=== PATIENT | male | born 1985 | race Caucasian/White ===

== ENCOUNTER → 2025-06-09 13:11 | Outpatient (REF) | payer OTHER, SELFPAY | LOC: RAD 13:11 | PROVIDERS: ATTENDING PHYSICIAN Family Medicine | DX: M79.671 Pain in right foot (principal) | CPT/HCPCS: 73630 ==

== ENCOUNTER 2025-06-13 15:12 | Inpatient (IN) | payer OTHER, SELFPAY ==
[2025-06-13 10:32] VITALS: BP 135/95
[2025-06-13 10:53] LABS: Hematocrit 44.5 % (39.0-52.0); Hemoglobin 15.1 g/dL (13.0-18.0); Mean Corp Hgb Conc. 33.9 g/dL (33.0-37.0); Mean Corpuscular Volume 88.1 fL (80.0-94.0); Nucleated Red Blood Cells % 0 % (-); Platelet Count 295 10^3/uL (130-400); Red Cell Dist. Width 13.3 % (11.5-14.5)
[2025-06-13 11:09] VITALS: BMI 37.5
[2025-06-13 11:24] LABS: ALT (SGPT) 27 U/L (0-50); AST (SGOT) 23 U/L (17-59); Albumin 4.0 g/dl (3.5-5.0); Alkaline Phosphatase 104 U/L (38-126); Blood Urea Nitrogen 19 mg/dl (9-20); Calcium 9.2 mg/dl (8.4-10.2); Carbon Dioxide 24 mmol/L (22-30); Chloride 99 mmol/L (98-107); Estimated Creatinine Clearance > 125 ml/min; Glucose 395 mg/dl (70-99); Potassium 5.3 mmol/L (3.5-5.1); Sodium 133 mmol/L (135-145); Total Protein 7.4 g/dl (6.3-8.2); eGFR > 60.00
--- NOTE | 2025-06-13 11:29 | ED.GENMED ---
History of Present Illness
General
Chief Complaint: Skin Problem
Source: patient
Time Seen by Provider: 06/13/25 11:14
History of Present Illness
History of Present Illness:
39-year-old male presents to the emergency room complaining of severe pain in his right foot. Patient suffered an injury to this foot several days ago while at work when a ladder 'kicked out' and hit him in the foot. He had pain at the time of the
injury for which she had an x-ray that was unremarkable. Pain is increased in severity. He saw his Workmen's Comp. doctor was placed in a boot. He followed up with the Workmen's Comp. doctor again today and was referred here to the emergency room
due to the redness send blistering. Patient admits to chills but has not taken his temperature. He has some nausea due to pain. He is unable to weight-bear due to the pain.
Past History
Past History
ED Past Medical History: Other
ED Past Surgical History: Appendectomy
Social History
Tobacco: Non-smoker
Alcohol: None
Personal:
Living: with family
Phy Exam
Physical Exam
Physical Exam:
General: Awake, Alert, Oriented X3. No distress but appears to be in some discomfort
Vitals: Tachycardic
Head: Atraumatic
Eyes: Pupils equal, EOMI
Throat: Airway intact, no exudates
Neck: Trachea midline
Lungs: Clear and equal b/l
Heart: Regular rate, no murmurs
Abd: Soft, Nontender, No pulsatile mass
Neuro: Nonfocal
Skin: Warm, dry, no rash
Extremities: pulses equal b/l, no edema. Moderate to significant swelling of the right foot with significant erythema. There is a purulent appearing blister just proximal to the 2nd and 3rd digit. Quite tender to minimal palpation.
Course
Orders/Labs/Results
Orders:
Orders
06/13/25 10:39
C-Reactive Protein Urgent
Comment: ADD ON
Complete Blood Count/With Diff Urgent
Comprehensive Metabolic Panel Urgent
Erythrocyte Sed Rate Urgent
Comment: ADD ON
Glycohemoglobin (HgbA1c) Urgent
06/13/25 11:25
CT Lower Ext W/iv Cont Rt Urgent
Comment:
Reason For Exam: severe foot infection eval for air/abscess
0.9% Sodium Chloride 1000 ml [Nss] 1,000 ml IV BOLUS
HYDROmorphone [Dilaudid] 0.5 mg IV NOW STA
06/13/25 11:51
Lactic Acid Q4H
Comment: CANCEL 2nd LACTIC ACID IF 1st LACTIC ACID IS LESS THAN 2
Blood Culture Q30M
SUE Source: Blood/Venous
Specimen Description:
Blood Culture Q30M
SUE Source: Blood/Venous
Specimen Description:
06/13/25 11:53
Wound Culture [Wound/Abscess/Other Culture] Urgent
SUE Source: Boil
Specimen Description:
Date Specimen was Collected: 06/13/25
Time Specimen was Collected: 11:48
06/13/25 12:09
Ampicillin/Sulbactam 3 G [Unasyn] 3 gm 0.9% Sodium Chloride 100 ml [Nss] 100 ml IV NOW
06/13/25 12:10
Vancomycin [Vancocin] 2,000 mg 0.9% Sodium Chloride 500 ml [Nss] 500 ml IV NOW
06/13/25 13:30
Add On- LAB Routine
Tests Added?: ESR, CRP, HgA1C
06/13/25 13:31
Accucheck Once [Bedside Glucose Monitoring-ONCE] As Directed
06/13/25 13:48
HYDROmorphone [Dilaudid] 1 mg IV NOW STA
HYDROmorphone [Dilaudid] 1 mg IV Q3HPRN PRN
06/13/25 13:50
WOUND/OSTOMY CONSULT Routine
Reason for Consult: R foot wound infection
06/13/25 13:51
Admit/Transfer Patient As Directed
Co-Sign Provider:
Level of Care: Inpatient admission
Assign to:: Medical/Surgical
Physician / Group: pelra wells
Diagnosis: R foot cellulitis
Reason for Hospitalization: R foot cellulitis
Expected length of stay greater than two midnights?: Yes
ELOS- Estimated Length of Stay in days: 3
I certify the patient meets the requirements for IP care: Yes
PRN Pain Medication Management As Directed
May give lesser potent ordered pain med per pt: Yes
preference::
Protocol:: Medication orders for pain may be administered in a
manner that supports deferring to patient preference
when the pt is:
- Requesting an ordered lesser potent pain medication.
Least to most potent pain medications are defined
as: acetaminophen < NSAID < tramadol < opioids
(morphine, oxycodone, hydromorphone).
- Requesting a lesser dose of the same medication IF
ORDERED.
- Requesting a less intrusive route of administration
if both routes are prescribed by the provider (PO <
IV).
06/13/25 13:53
Code Status As Directed
Resuscitation Status: Full Code
06/13/25 14:00
Flush (0.9% Sodium Chloride) [Flush (Nss)] See Dose Instructions IV PER PROTOCOL
06/13/25 15:30
Lactic Acid Q4H
Comment: CANCEL 2nd LACTIC ACID IF 1st LACTIC ACID IS LESS THAN 2
Abnormal Lab Results
06/13/25 06/13/25
10:39 14:31
WBC 16.5 H 10^3/uL
(4.8-10.8)
Abs Immat Gran (auto) 0.2 H 10^3/uL
(0-0.05)
Absolute Neuts (auto) 14.0 H 10^3/uL
(1.4-6.5)
Absolute Lymphs (auto) 1.1 L 10^3/uL
(1.2-3.4)
Absolute Monos (auto) 1.0 H 10^3/uL
(0.1-0.6)
Immature Gran % 1.0 H %
(0-0.5)
Neutrophils % 84.8 H %
(42.2-75.2)
Lymphocytes % 6.9 L %
(20.5-51.1)
ESR 66 H mm/hour
(0-20)
Sodium 133 L mmol/L
(135-145)
Potassium 5.3 H mmol/L
(3.5-5.1)
Glucose 395 H mg/dl
(70-99)
C-Reactive Protein > 270.00 H mg/L
(0.0-10.00)
POC Glucose 196 H mg/dl
(70-99)
06/13/25 10:39
06/13/25 10:39
Vital Signs
Initial and Last Documented VS:
Initial Vital Signs
Temp Pulse Resp BP Pulse Ox
98.4 F 105 16 135/95 98
06/13/25 10:32 06/13/25 10:32 06/13/25 10:32 06/13/25 10:32 06/13/25 10:32
Last Documented Vital Signs
Temp Pulse Resp BP Pulse Ox
98.4 F 105 16 135/95 98
06/13/25 10:32 06/13/25 10:32 06/13/25 10:32 06/13/25 10:32 06/13/25 11:32
MDM/Problems Addressed
Differential Diagnosis Includes:
Cellulitis, subcutaneous abscess, osteomyelitis, necrotizing fasciitis
MDM/Problems Addressed:
Patient presents with significant redness, tenderness and some blistering of left foot. On exam it looks acutely infected. Purulent appearing blister nicked and fluid sent for culture and sensitivities. Diabetic foot infection antibiotics
started. Patient will require hospitalization for IV antibiotics
*Radiology
Radiology exam reviewed: radiology read reviewed
*Pulse Oximetry
SaO2: 98
Oxygen Mode of Delivery: Room air
Patient hypoxic: no
*Critical Care Note
Total Time (30-74mins, 75-104mins- exclusive of procedures): Not Applicable
ED Attending Note
-
Portions of this chart may have been created with voice recognition software.� Occasional wrong word or��sound alike� substitutions may have occurred due to the inherent limitations of voice recognition software.
Discharge Plan
Departure
Patient Disposition: Admit
Date of Disposition: 06/13/25
Time of Disposition: 13:20
Admit to: Med/Surg
Presentation/result/management discussed w/ accepting MD/DO: Hospitalist
Condition: Fair
Discharge Problem:
Diabetic foot infection
Prescriptions:
No Action
hydromorphone 4 MG tablet
4 mg PO QIDPRN PRN (Reason: severe pain)
ibuprofen 800 mg Tablet
800 mg PO DAILY
allopurinol 300 mg Tablet
300 mg PO QPM
testosterone cypionate 200 mg/mL Oil
300 mg IM TUSA
duloxetine [Cymbalta] 30 mg Capsule,Delayed Release(Dr/Ec)
30 mg PO QPM
amlodipine-valsartan 10-160 mg Tablet
1 tab PO QPM
dapagliflozin propanediol [Farxiga] 10 mg Tablet
10 mg PO QPM
metformin 500 MG tablet
500 mg PO BID
Referrals:
Santo Fine DO [Family Provider, Family Practice]
Interventions
Interventions:
*Risk Screen - Suicide Last Done: 06/13/25 10:32
*Neglect/Abuse Screening Last Done: 06/13/25 10:32
ED-Skin Assessment Last Done: 06/13/25 11:09
Discharge Date and Time
Print Language: BURMESE
[2025-06-13] MEDS: NSS 1000 IV (11:49)
[2025-06-13] MEDS: DILAUDID 0.5 MG IV ×2 (11:50→21:52)
[2025-06-13] MEDS: VANCOCIN 540 MG IV (12:27)
--- NOTE | 2025-06-13 13:28 | HPS.HSE ---
Family Physician
-
Family Physician: Santo Fine
Chief Complaint
-
Worsening right foot pain and redness
History of Present Illness
39-year-old male with a past medical history of hypertension, diabetes, obesity, and gout who presents with worsening right foot pain, swelling, and erythema. Patient reports injuring his right foot with a ladder at work on Monday, 6 days ago.
He was seen by his Workmen's Comp. doctor, x-ray was negative. He was given a walking boot and pain meds. He returned to his Workmen's Comp. doctor today due to worsening pain, and his doctor sent him to the ER. He states that his pain is 9 out
of 10 in intensity, and worse with walking. Associate symptoms include nausea and palpitations due to the pain. Denies chest pain, denies shortness of breath. No fever, no vomiting.
Medical History
Past Medical History
Past Medical History: Reports Other
Additional Past Medical History:
Diabetes
Obesity
Gout
Lumbar radiculopathy
Lumbar fractures
Essential hypertension
Past Surgical History: Reports Other
Additional Past Surgical History:
Appendectomy
Tonsillectomy
Multiple lumbar spinal surgeries
Neurostimulator placement
Social History
Tobacco: Non-smoker
Alcohol: Occasional
Drug: None
Personal:
Family History
Family History: Not pertinent
Allergies / Home Medications
Allergies reflects when Allergies were last updated in [employer].
Home Medications with original date entered in [employer]
Allergy/Medication List:
Allergies
Allergy/AdvReac Type Severity Reaction Status Date / Time
Sulfa (Sulfonamide Allergy Unknown Verified 06/13/25 10:35
Antibiotics)
Home Medications Table - record
�Medication �Instructions �Recorded �Confirmed
hydromorphone 4 mg tablet 4 mg PO QIDPRN PRN severe pain 05/29/17 06/13/25
allopurinol 300 mg tablet 300 mg PO QPM 06/13/25 06/13/25
amlodipine 10 mg-valsartan 160 mg 1 tab PO QPM 06/13/25 06/13/25
tablet
dapagliflozin propanediol 10 mg 10 mg PO QPM 06/13/25 06/13/25
tablet (Farxiga)
duloxetine 30 mg capsule,delayed 30 mg PO QPM 06/13/25 06/13/25
release
ibuprofen 800 mg tablet 800 mg PO DAILY 06/13/25 06/13/25
metformin 500 mg tablet 500 mg PO BID 06/13/25 06/13/25
testosterone cypionate 200 mg/mL 300 mg IM TUSA 06/13/25 06/13/25
intramuscular oil
Review of Systems
-
A 12 point ROS was completed and negative except as noted: Yes
Physical Exam
Vital Signs
Vital Signs
Temp Pulse Resp BP Pulse Ox
98.4 F 105 16 135/95 98
06/13/25 10:32 06/13/25 10:32 06/13/25 10:32 06/13/25 10:32 06/13/25 11:32
Physical Exam
General: No Apparent Distress and Obese
HEENT: NormoCephalic, Anicteric, Moist mucous membranes and Atraumatic
Respiratory: Clear
Cardiac: S1/S2 and Tachycardia
GI: Soft, Non Tender, Non Distended and Normal Bowel Sounds
Musculoskeletal: No Clubbing and Other (Severe edema and erythema of the right foot)
Laboratory Results
-
06/13/25 10:39
06/13/25 10:39
Laboratory Results
Lactic Acid 1.5 mmol/L (0.7-2.0) 06/13/25 11:51
Total Bilirubin 1.3 mg/dl (0.2-1.3) 06/13/25 10:39
AST 23 U/L (17-59) 06/13/25 10:39
ALT 27 U/L (0-50) 06/13/25 10:39
Alkaline Phosphatase 104 U/L (38-126) 06/13/25 10:39
Impression/Plan
-
HPI: 39-year-old male with a past medical history of hypertension, diabetes, obesity, and gout who presents with worsening right foot pain, swelling, and erythema. Patient reports injuring his right foot with a ladder at work on Monday, 6 days
ago. He was seen by his Workmen's Comp. doctor, x-ray was negative. He was given a walking boot and pain meds. He returned to his Workmen's Comp. doctor today due to worsening pain, and his doctor sent him to the ER. He states that his pain is 9
out of 10 in intensity, and worse with walking. Associate symptoms include nausea and palpitations due to the pain. Denies chest pain, denies shortness of breath. No fever, no vomiting.
#Sepsis
#Right foot cellulitis
#Right foot traumatic injury
Right lower extremity CT negative for osteomyelitis or fracture, shows severe edema
Status post vancomycin and Unasyn in the ED
Treat with IV Ancef and doxycycline, follow-up on wound cultures
#Uncontrolled type 2 diabetes
Patient reports that he becomes hyperglycemic due to stress and pain, but has a history of dropping to the 40s with insulin
Will treat pain, order diabetic diet, sliding scale insulin for now
Continue home metformin
#Hyperkalemia
Hold home valsartan
Recheck a.m. labs
#Essential hypertension
Hold home valsartan
Continue amlodipine 10 mg every afternoon
#Chronic back pain
#History of lumbar fractures
Has spinal stimulator
#Obesity due to excess calories
Affects all aspects of care
DVT prophylaxis�subcu Lovenox
Full code
Updated at bedside
Total time spent to see the patient on the floor, examine the patient, review data and lab results, discuss treatment plan with patient, nursing staff around 75 minutes.
[2025-06-13] MEDS: DILAUDID 1 MG IV ×2 (14:29→20:37)
[2025-06-13 14:30] LABS: C-Reactive Protein > 270.00 mg/L (0.0-10.00)
--- NOTE | 2025-06-13 14:30 | WOUNDNOTE ---
WON RN note: Patient admitted with diabetic R foot infection.
See H&P for complete history. lives with .
PMH: DM type 2, b/l leg weakness-neuropathy, chronic low back pain.
Wound Location and type/assessment: Patient admitted with: R dorsal foot blistering, redness, warmth and edema. + palpable pulses, foot x ray negative. CT scan of lower leg- + soft tissue inflammation, negative abscess. Patient confirmed a ladder
fell on his foot at work causing a wound and now is infected. Wound culture pending.
Appetite: Good.
Pressure redistribution devices in place: Received on stretcher, can be on Accumax bed. Elevate R leg on pillows.
Plan: Adaptic and dry dressing applied to R foot. Patient with severe pain upon dressing change, would not tolerate compression at this time. Instructed patient and at bedside importance of leg elevation. Also made aware that blisters may open
up and start to drain. Will confirm orders with hospitalist and updated nurse Melia.
Updated care plan and will follow as needed.
Note to case management of equipment requested for discharge: TBD.
Recommend follow up at wound care center upon discharge.
[2025-06-13 14:33] LABS: Glucose - Point of Care 196 mg/dl (70-99)
--- NOTE | 2025-06-13 14:38 | CM ---
Met with patient and , Theresa (#[phone]), at the bedside in the ED
Pharmacy verified: [facility] @ [address] [place] [address]
Lives w/ , multilevel home; 1st floor set up; 1 step to enter; bath has walk-in shower with shower chair and grab bar
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
DME: Glucometer, Implanted Spinal Stimulator
NO recent home health; no SNF utilization history
will transport home
Discharge plan to be determined pending hospital course; Case Management will monitor and support services if recommended
[2025-06-13] MEDS: UNASYN IV (15:05)
[2025-06-13 17:43] VITALS: BMI 38.7
[2025-06-13 17:44] VITALS: BP 154/99
[2025-06-13] MEDS: LOVENOX 40 MG SC (18:05)
[2025-06-13] MEDS: FARXIGA 10 MG PO (18:05)
[2025-06-13] MEDS: CYMBALTA DELAYED RELEASE 30 MG PO (18:05)
[2025-06-13] MEDS: GLUCOPHAGE 500 MG PO (18:05)
[2025-06-13] MEDS: NORVASC 10 MG PO (18:05)
[2025-06-13] MEDS: ZYLOPRIM 300 MG PO (18:06)
[2025-06-13 18:09] LABS: Glucose - Point of Care 219 mg/dl (70-99)
[2025-06-13] MEDS: ROXICODONE 15 MG PO (18:12)
[2025-06-13] MEDS: TYLENOL 650 MG PO (18:17)
--- NOTE | 2025-06-13 18:32 | PTCARENOTE ---
Patient arrived to unit from Ed around 1730. Assist x1 to transfer from stretcher to bed. Pain medication given for 9/10 pain at this time in RLE. VSS. Night medications given. Blood sugar checked at 219. Patient refused insulin coverage. States
that the last time he received insulin at the hospital, it made him drop very low. MD notified. Farxiga and metformin given. Plan of care ongoing.
[2025-06-13] MEDS: SENOKOT-S PO (20:37)
[2025-06-13] MEDS: ANCEF 10 IV (20:42)
[2025-06-13] MEDS: VIBRAMYCIN 260 MG IV (21:19)
[2025-06-13 21:38] LABS: Glucose - Point of Care 184 mg/dl (70-99)
[2025-06-14 00:26] VITALS: BP 135/82
[2025-06-14] MEDS: TYLENOL 650 MG PO (00:54)
[2025-06-14] MEDS: DILAUDID 1 MG IV ×8 (00:55→21:45)
[2025-06-14] MEDS: SENOKOT-S PO ×3 (01:53→20:10)
[2025-06-14] MEDS: ANCEF 10 IV ×2 (03:48→11:43)
[2025-06-14 03:56] VITALS: BP 158/80
[2025-06-14 06:29] LABS: Hematocrit 40.7 % (39.0-52.0); Hemoglobin 13.5 g/dL (13.0-18.0); Mean Corp Hgb Conc. 33.2 g/dL (33.0-37.0); Mean Corpuscular Volume 87.9 fL (80.0-94.0); Platelet Count 310 10^3/uL (130-400); Red Cell Dist. Width 13.6 % (11.5-14.5)
[2025-06-14 06:50] LABS: Blood Urea Nitrogen 17 mg/dl (9-20); Calcium 8.7 mg/dl (8.4-10.2); Carbon Dioxide 25 mmol/L (22-30); Chloride 99 mmol/L (98-107); Estimated Creatinine Clearance 109 ml/min; Glucose 310 mg/dl (70-99); Magnesium 2.2 mg/dl (1.6-2.3); Potassium 4.8 mmol/L (3.5-5.1); Sodium 133 mmol/L (135-145); eGFR > 60.00
[2025-06-14] MEDS: GLUCOPHAGE 500 MG PO (08:27)
[2025-06-14] MEDS: VIBRAMYCIN 260 MG IV (08:27)
[2025-06-14 08:32] LABS: Glucose - Point of Care 214 mg/dl (70-99)
[2025-06-14 08:46] VITALS: BP 157/92
--- NOTE | 2025-06-14 08:57 | W.PN.HOSP.TC ---
Today's Communication/Plan
-
see bold
Assessment / Plan
Assessment / Plan
HPI: 39-year-old male with a past medical history of hypertension, diabetes, obesity, and gout who presents with worsening right foot pain, swelling, and erythema. Patient reports injuring his right foot with a ladder at work on Monday, 6 days
ago. He was seen by his Workmen's Comp. doctor, x-ray was negative. He was given a walking boot and pain meds. He returned to his Workmen's Comp. doctor today due to worsening pain, and his doctor sent him to the ER. He states that his pain is 9
out of 10 in intensity, and worse with walking. Associate symptoms include nausea and palpitations due to the pain. Denies chest pain, denies shortness of breath. No fever, no vomiting.
#Sepsis
#Right foot cellulitis
#Right foot traumatic injury
Right lower extremity CT negative for osteomyelitis or fracture, shows severe edema
Status post vancomycin and Unasyn in the ED
Appreciate ID input, recommend vancomycin/Zosyn
Follow-up on cultures, trend fever and white count
#Elevated creatinine
Hold home metformin, discontinue Toradol
#Uncontrolled type 2 diabetes
Patient reports that he becomes hyperglycemic due to stress and pain, but has a history of BS dropping to the 40s with insulin
Continue treating pain, diabetic diet, sliding scale insulin
Hold home metformin due to elevated Cr
#Hyperkalemia
Hold home valsartan
Resolved
#Essential hypertension
Hold home valsartan due to hyperkalemia
Continue amlodipine 10 mg every afternoon
Start clonidine 0.1 mg 3 times daily
#Chronic back pain
#History of lumbar fractures
Has spinal stimulator
#Obesity due to excess calories
Affects all aspects of care
DVT prophylaxis�subcu Lovenox
Full code
Updated at bedside 06/13
Total time spent to see the patient on the floor, examine the patient, review data and lab results, discuss treatment plan with patient, nursing staff around 50 minutes.
Physical Exam
General: No Apparent Distress and Obese
HEENT: NormoCephalic, Anicteric, Moist mucous membranes and Atraumatic
Respiratory: Clear
Cardiac: S1/S2 and Tachycardia
GI: Soft, Non Tender, Non Distended and Normal Bowel Sounds
Musculoskeletal: No Clubbing and Other (Severe edema and erythema of the right foot)
Anticipated Discharge: > 48 hours
Subjective/Interval History
-
Date of Service: June 14, 2025
Patient continues to have severe right foot pain, 10 out of 10 in intensity. He denies chest pain, denies shortness of breath. No fever, no vomiting.
Objective Data
-
Labs:
Laboratory Results
06/14/25
05:46
WBC 19.7 H
Hgb 13.5
Hct 40.7
Plt Count 310
Sodium 133 L
Potassium 4.8
Chloride 99
Carbon Dioxide 25
BUN 17
Creatinine 1.4 H
Glucose 310 H
Calcium 8.7
Vital Signs:
Vital Signs
Temp Pulse Resp BP Pulse Ox
99.3 F 106 18 157/92 92
06/14/25 08:46 06/14/25 08:46 06/14/25 08:46 06/14/25 08:46 06/14/25 08:46
I&O
06/13/25 06/14/25 06/15/25
06:59 06:59 06:59
Intake Total 960 / 960
Output Total 2850 / 2850
Balance -1889 / -1890
[2025-06-14 09:29] LABS: Glycohemoglobin (HgbA1c) 8.9 % (4.0-5.6)
[2025-06-14] MEDS: TORADOL 30 MG IV (10:02)
--- NOTE | 2025-06-14 12:00 | CON.ID ---
Consultation
-
Date/Time Consultation Requested: June 14, 2025 1036
Date/Time Consultation Performed: June 14, 2025 1200
Requesting Provider: Dr. Anjum Tadeo
Performing Provider: Dr. Pushpa Biggs
Reason for Consultation: Right foot cellulitis
Chief Complaint / Past History
Chief Complaint
Foot swelling and redness
History of Present Illness
39-year-old male with history of diabetes mellitus, hypertension, presented to the ER yesterday due to worsening right foot swelling and redness. 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 About 7 days ago, he accidentally hit the top of his right foot
through work boot against the rung of the ladder at work. Initially no wounds and no erythema. He was seen by his work comp physician. Over the next few days he developed worsening pain, difficulty with ambulation. His physician sent him to the
ER yesterday. White count 16.5. Temperature 100.4. He received vancomycin and Unasyn in the ER, then changed to cefazolin and IV doxycycline. Today, he states no significant improvement of the foot. Pain is better controlled.
Past History
Additional Past Medical History:
DM
Hypertension
Gout
Anxiety/depression
Lumbar radiculopathy
Class III obesity BMI 38
Additional Past Surgical History:
Multiple lumbar spinal surgeries
Neurostimulator placement
Allergy History:
Sulfa (Sulfonamide Antibiotics) Allergy (Verified 06/13/25 10:35)
Unknown
Medications Reviewed: Yes
Current Antibiotics:
cefazolin
Doxycycline IV
Social History
Tobacco: Non-Smoker
Alcohol: Occasional
Drug: None
Personal:
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
Family History
Family History: Not Pertinent
Review of Systems
Review of Systems
General: Negative Fever, Chills or Change in Appetite
HEENT: Negative Sinus Problems or Headache
Cardiovascular: Negative Chest Pain or Dyspnea
Respiratory: Negative Dyspnea or Cough
Gasteroenterology: Negative Nausea, Vomiting or Diarrhea
Genital / Urological: Negative Dysuria or Flank Pain
Endocrine: Negative Weakness
Skin / Hair / Nails: Negative Rash
All systems: All other systems were reviewed and were negative
Vital Signs
Temp Pulse Resp BP Pulse Ox
99.3 F 106 18 157/92 92
06/14/25 08:46 06/14/25 08:46 06/14/25 08:46 06/14/25 08:46 06/14/25 08:46
Selected Entries
06/14/25
00:26
Temp 100.4 F H
Physical Exam
Physical Exam
Constitutional: No Acute Distress and Comfortable
Eyes: No Conjunctival Hemorrhage and Sclera Anicteric
Cardiovascular: Regular Rate and S1/S2
Pulmonary: Clear
Gastrointestinal: Soft, Non Tender, Non Distended and Normal Bowel Sounds
Genito-Urinary: Negative CVA Tenderness
Extremities: Edema (Right foot 3+), Erythema (Right foot dorsum, bright erythema from forefoot to ankle, + warmth. ) and Other (wound on forefoot with greenish discharge, developing abscess proximally)
Neurological: AO x 3
Lab / Diagnostic Study Results
06/14/25 05:46
06/14/25 05:46
Abs Immat Gran (auto) 0.2 10^3/uL (0-0.05) H 06/13/25 10:39
Absolute Neuts (auto) 14.0 10^3/uL (1.4-6.5) H 06/13/25 10:39
Absolute Lymphs (auto) 1.1 10^3/uL (1.2-3.4) L 06/13/25 10:39
Absolute Monos (auto) 1.0 10^3/uL (0.1-0.6) H 06/13/25 10:39
Absolute Basos (auto) 0.1 10^3/uL (0-0.2) 06/13/25 10:39
Immature Gran % 1.0 % (0-0.5) H 06/13/25 10:39
Neutrophils % 84.8 % (42.2-75.2) H 06/13/25 10:39
Lymphocytes % 6.9 % (20.5-51.1) L 06/13/25 10:39
Monocytes % 6.1 % (1.7-9.3) 06/13/25 10:39
Eosinophils % 0.8 % (0-6) 06/13/25 10:39
Basophils % 0.4 % (0-2) 06/13/25 10:39
ESR 66 mm/hour (0-20) H 06/13/25 10:39
Lactic Acid Cancelled 06/13/25 15:30
C-Reactive Protein > 270.00 mg/L (0.0-10.00) H 06/13/25 10:39
Microbiology Results
Micro:
06/13/25 11:51 Blood Culture - Preliminary
Blood/Venous No Growth in 24 hours- Final report to follow
06/13/25 11:51 Blood Culture - Preliminary
Blood/Venous No Growth in 24 hours- Final report to follow
06/13/25 11:53 Wound Culture - Preliminary
Boil Coagulase neg. staphylococcus
Gram Stain - Preliminary
06/13/25 CT RLE: There is soft tissue inflammation but no evidence of osteomyelitis, fracture or abscess
Assessment / Plan
# Severe purulent cellulitis right foot
Recent trauma to foot - hit against ladder through work boot.
# Fever
# Leukocytosis - worse
# DM
-Bcx neg to date
- CT no osteo/abscess
- DC cefazolin, IV doxycycline
- Start Vancomycin and Zosyn for polymicrobial coverage, including Pseudomonas (green drainage)
- Follow temps/wbc.
[2025-06-14 12:29] LABS: Glucose - Point of Care 269 mg/dl (70-99)
--- NOTE | 2025-06-14 12:52 | PHA.VAN.IN ---
Addendum entered and electronically signed by Indu Whelan [facility] 06/15/25 14:05:
MAINTENANCE REGIMEN: VANCO 1250MG Q8H
Original Note:
Assessment
- Assessment
Renal Function: SCR Appears Elevated from baseline
Maximum Temperature: 100.4 F
Concomitant Antimicrobials: PIPERACILLIN/TAZOBACTAM
AUC Dosing Plan
- Dosing Variables
Dosing Weight (kg): 107 (adjusted body weight) (12mg/kg)
Dosing CrCl (ml/min): 109
Vd coefficient (L/kg): 0.6
- Empiric Dosing
Initial / Loading Dose: VANCO 2000MG X1
Maintenance Regimen: VANCO 1250MG Q12H
Estimated AUC (mcg*h/mL): 504
Estimated Peak (mcg*h/mL): 28.0
Estimated Trough (mcg/ml): 15.1
Estimated Half Life (H): 7.3
- Monitoring
No levels ordered at this time: CONSIDER LEVEL AT STEADY STATE
Pharmacokinetics Vancomycin I
- -
Patient Age: 39
Patient Sex: Male
Vancomycin Day #: 1
Indication: Skin And Soft Tissue
Requesting Provider: DR. NICHOLSON
Pertinent Antimicrobial Allergies:
SULFA (UNKNOWN)
Height / Weight:
Height 6 ft 3 in
Actual Weight 140.614 kg
IBW in k
Adjusted BW in k
Pertinent Past Medical History: BMI 38
- Vital Signs / Lab Results
Temp Pulse Resp BP Pulse Ox
98.1 F 106 18 157/92 92
06/14/25 12:12 06/14/25 08:46 06/14/25 08:46 06/14/25 08:46 06/14/25 08:46
Lab Results - Hematology
06/13/25 06/14/25
10:39 05:46
WBC 16.5 H 19.7 H
Lab Results - Chemistry
06/13/25 06/14/25
10:39 05:46
BUN 19 17
Creatinine 1.2 1.4 H
Estimated Creat Clear > 125 109
Albumin 4.0
06/13/25 06/13/25
11:51 15:30
Lactic Acid 1.5 Cancelled
Microbiology Results
06/13/25 11:51 Blood Culture - Preliminary
Blood/Venous No Growth in 24 hours- Final report to follow
06/13/25 11:51 Blood Culture - Preliminary
Blood/Venous No Growth in 24 hours- Final report to follow
06/13/25 11:53 Wound Culture - Preliminary
Boil Coagulase neg. staphylococcus
Gram Stain - Preliminary
[2025-06-14] MEDS: VANCOCIN 540 MG IV (13:13)
[2025-06-14 16:33] VITALS: BP 135/82
--- NOTE | 2025-06-14 16:33 | PTCARENOTE ---
at 0841, patient c/o 10/10 right foot pain and received PRN Dilaudid at 0728. he reports pain level decreases to 7-8/10 but quickly 'creeps back up'. notified Dr. Sherry Lantigua Do via tiger text and she ordered one time order of Dilaudid 1mg IV now
and it had good pain relief. Then at 1333, c/o 10/10 right foot pain after Dr. Biggs did dressing change at bedside after looking at wound and PRN Dilaudid not due until 14:39. notified Dr. Sherry Lantigua Do and telephone ordered obtained to give
14:39 dose of PRN Dilaudid now. Dilaudid effective, will continue to monitor.
[2025-06-14] MEDS: ZOSYN 100 IV ×2 (16:38→20:11)
[2025-06-14 17:18] LABS: Glucose - Point of Care 236 mg/dl (70-99)
[2025-06-14] MEDS: TYLENOL 1000 MG PO ×2 (17:39→20:11)
[2025-06-14] MEDS: CATAPRES 0.1 MG PO ×2 (17:39→21:43)
[2025-06-14] MEDS: NORVASC 10 MG PO (17:42)
[2025-06-14] MEDS: CYMBALTA DELAYED RELEASE 30 MG PO (17:42)
[2025-06-14] MEDS: FARXIGA 10 MG PO (17:43)
[2025-06-14] MEDS: DILAUDID 8 MG PO (17:44)
[2025-06-14] MEDS: LOVENOX 40 MG SC (17:45)
[2025-06-14] MEDS: ZYLOPRIM 300 MG PO (18:36)
--- NOTE | 2025-06-14 20:30 | PTCARENOTE ---
Pt with temp of 101. 1,000 mg Tylenol scheduled for 2200. DMITRY Kennedy notified. Ordered to give 2200 dose early. Refer to MAR. Plan of care ongoing.
[2025-06-14 21:25] LABS: Glucose - Point of Care 297 mg/dl (70-99)
[2025-06-14 21:39] VITALS: BP 139/78
[2025-06-14] MEDS: VANCOCIN 275 MG IV (21:44)
--- NOTE | 2025-06-15 01:25 | PTCARENOTE ---
Pt c/o of 10/10 pain to the right foot. Given a dose of Dilaudid 1mg without relief. TT house provider for a dose for breakthrough pain. See MAR.
[2025-06-15] MEDS: ZOSYN 100 IV ×4 (02:35→20:16)
[2025-06-15] MEDS: DILAUDID 1 MG IV ×7 (02:44→22:56)
[2025-06-15] MEDS: DILAUDID 8 MG PO (05:07)
[2025-06-15] MEDS: VANCOCIN 275 MG IV ×3 (05:08→21:05)
[2025-06-15 07:55] LABS: Hematocrit 39.5 % (39.0-52.0); Hemoglobin 13.3 g/dL (13.0-18.0); Mean Corp Hgb Conc. 33.7 g/dL (33.0-37.0); Mean Corpuscular Volume 88.4 fL (80.0-94.0); Platelet Count 297 10^3/uL (130-400); Red Cell Dist. Width 13.2 % (11.5-14.5)
[2025-06-15] MEDS: TYLENOL 1000 MG PO ×3 (08:13→23:20)
[2025-06-15] MEDS: SENOKOT-S PO ×2 (08:16→20:33)
[2025-06-15] MEDS: CATAPRES 0.1 MG PO ×4 (08:17→23:19)
[2025-06-15 08:19] VITALS: BP 149/96
[2025-06-15 08:23] LABS: Glucose - Point of Care 233 mg/dl (70-99)
--- NOTE | 2025-06-15 08:49 | W.PN.HOSP.TC ---
Today's Communication/Plan
-
see bold
Assessment / Plan
Assessment / Plan
HPI: 39-year-old male with a past medical history of hypertension, diabetes, obesity, and gout who presents with worsening right foot pain, swelling, and erythema. Patient reports injuring his right foot with a ladder at work on Monday, 6 days
ago. He was seen by his Workmen's Comp. doctor, x-ray was negative. He was given a walking boot and pain meds. He returned to his Workmen's Comp. doctor today due to worsening pain, and his doctor sent him to the ER. He states that his pain is 9
out of 10 in intensity, and worse with walking. Associate symptoms include nausea and palpitations due to the pain. Denies chest pain, denies shortness of breath. No fever, no vomiting.
#Sepsis
#Right foot cellulitis
#Right foot traumatic injury
Right lower extremity CT negative for osteomyelitis or fracture, shows severe edema
Status post vancomycin and Unasyn in the ED
Appreciate ID input, recommend vancomycin/Zosyn D2, consult podiatry
Continue pain medications, laxatives, trend fever and white count
#Elevated creatinine
Hold home metformin, discontinued Toradol
#Uncontrolled type 2 diabetes
Patient reports that he becomes hyperglycemic due to stress and pain, but has a history of BS dropping to the 40s with insulin
Continue treating pain, diabetic diet, sliding scale insulin
Hold home metformin due to elevated Cr
#Hyperkalemia
Hold home valsartan
Resolved
#Essential hypertension
Hold home valsartan due to hyperkalemia
Continue amlodipine 10 mg every afternoon
Started clonidine 0.1 mg 3 times daily
#Chronic back pain
#History of lumbar fractures
Has spinal stimulator
#Obesity due to excess calories
Affects all aspects of care
DVT prophylaxis�subcu Lovenox
Full code
Updated at bedside 06/13
Total time spent to see the patient on the floor, examine the patient, review data and lab results, discuss treatment plan with patient, nursing staff around 51 minutes.
Physical Exam
General: No Apparent Distress and Obese
HEENT: NormoCephalic, Anicteric, Moist mucous membranes and Atraumatic
Respiratory: Clear
Cardiac: S1/S2 and Tachycardia
GI: Soft, Non Tender, Non Distended and Normal Bowel Sounds
Musculoskeletal: No Clubbing and Other (Severe edema and erythema of the right foot)
Anticipated Discharge: > 48 hours
Subjective/Interval History
-
Date of Service: June 15, 2025
Patient's right foot pain is minimally improved. Denies chest pain, denies shortness of breath. No fever, no vomiting.
Objective Data
-
Labs:
Laboratory Results
06/15/25
07:45
WBC 18.5 H
Hgb 13.3
Hct 39.5
Plt Count 297
Vital Signs:
Vital Signs
Temp Pulse Resp BP Pulse Ox
99.4 F 104 16 149/96 91
06/15/25 08:19 06/15/25 08:19 06/15/25 08:19 06/15/25 08:19 06/15/25 08:19
I&O
06/14/25 06/15/25 06/16/25
06:59 06:59 06:59
Intake Total 960 / 960 3470 / 3470
Output Total 2850 / 2850 5525 / 5525
Balance -0 / -1889 -2054 /
[2025-06-15 10:15] LABS: Blood Urea Nitrogen 20 mg/dl (9-20); Calcium 8.6 mg/dl (8.4-10.2); Carbon Dioxide 23 mmol/L (22-30); Chloride 101 mmol/L (98-107); Estimated Creatinine Clearance 118 ml/min; Glucose 249 mg/dl (70-99); Potassium 5.0 mmol/L (3.5-5.1); Sodium 132 mmol/L (135-145); eGFR > 60.00
[2025-06-15 10:33] LABS: C-Reactive Protein > 270.00 mg/L (0.0-10.00)
--- NOTE | 2025-06-15 10:33 | W.PN.ID1 ---
Date of Service
Date of Service: June 15, 2025
Today's Communication
Podiatry consult
Assessment / Plan
# Severe purulent cellulitis right foot
Recent trauma to foot - hit against ladder through work boot.
# Fever persists
# Leukocytosis - slightly improved
# DM
-Bcx neg to date
- CT no osteo/abscess
- Podiatry consult
- Continue Vancomycin and Zosyn (d2) for polymicrobial coverage, including Pseudomonas (green drainage)
- Follow temps/wbc.
Chief Complaint
-: Cellulitis
Subjective / Review of Systems
fever and chills last night
Vital Signs / Physical Exam
Vital Signs
Vital Signs
Temp Pulse Resp BP Pulse Ox
99.4 F 104 16 149/96 91
06/15/25 08:19 06/15/25 08:19 06/15/25 08:19 06/15/25 08:19 06/15/25 08:19
Selected Entries
06/14/25
19:00
Temp 101.0 F H
Physical Exam
Constitutional: No Acute Distress
Cardiovascular: Regular Rate and S1/S2
Pulmonary: Clear
Gastrointestinal: Soft, Non Tender and Non Distended
Extremities: Other (Right foot + edema, bright erythema dorsum of foot to above ankle, + warmth; blister wound forefoot with green drainage on gauze, small pustule on proximal foot)
Neurological: AO x 3
Objective Data
Lab Data
Lab Results
06/15/25 07:45
06/15/25 07:45
ESR 66 mm/hour (0-20) H 06/13/25 10:39
Estimated Creat Clear 118 ml/min 06/15/25 07:45
Lactic Acid Cancelled 06/13/25 15:30
Total Bilirubin 1.3 mg/dl (0.2-1.3) 06/13/25 10:39
AST 23 U/L (17-59) 06/13/25 10:39
ALT 27 U/L (0-50) 06/13/25 10:39
Alkaline Phosphatase 104 U/L (38-126) 06/13/25 10:39
C-Reactive Protein > 270.00 mg/L (0.0-10.00) H 06/13/25 10:39
Most recent labs reviewed.
Micro Results:
06/13/25 11:53 Wound Culture - Final
Boil Gram Stain - Final
06/13/25 11:51 Blood Culture - Preliminary
Blood/Venous No Growth in 24 hours- Final report to follow
06/13/25 11:51 Blood Culture - Preliminary
Blood/Venous No Growth in 24 hours- Final report to follow
06/13/25 CT RLE: There is soft tissue inflammation but no evidence of osteomyelitis, fracture or abscess
Care Review
Plan reviewed with: Physician (Dr. Anjum Tadeo)
[2025-06-15 11:44] LABS: Glucose - Point of Care 255 mg/dl (70-99)
--- NOTE | 2025-06-15 14:06 | PHA.VAN.FU ---
Vancomycin Assessment / Plan
- Assessment
Renal Function: SCR Decreasing
WBC's are: Trending Down
In the past 24 hrs, patient has been: Febrile (TMAX 101 F)
Concomitant Antimicrobials: PIPERACILLIN/TAZOBACTAM
- Assessment - Therapeutic Drug Monitoring
Random Level: 13.9 DRAWN ~8 HR AFTER PREVIOUS DOSE VANCO 1250MG
- Dosing Plan
Continue: VANCO 1250MG Q8H
- Monitoring Plan
No level(s) ordered at this time: CONSIDER LEVELS AT STEADY STATE
- Follow Up
Pharmacy will continue to follow.
Vancomycin Follow UP
- -
Patient Age: 39
Patient Sex: Male
Vancomycin Day #: 2
Indication: Skin And Soft Tissue
Requesting Provider: DR. NICHOLSON
Pertinent Antimicrobial Allergies:
SULFA (UNKNOWN)
Height / Weight:
Height 6 ft 3 in
Actual Weight 140.614 kg
IBW in k
Adjusted BW in k
Pertinent Past Medical History: BMI 38
- Vital Signs / Lab Results
Temp Pulse Resp BP Pulse Ox
99.4 F 104 16 149/96 91
06/15/25 08:19 06/15/25 08:19 06/15/25 08:19 06/15/25 08:19 06/15/25 08:19
Lab Results - Hematology
06/13/25 06/14/25 06/15/25
10:39 05:46 07:45
WBC 16.5 H 19.7 H 18.5 H
Lab Results - Chemistry
06/13/25 06/14/25 06/15/25
10:39 05:46 07:45
BUN 19 17 20
Creatinine 1.2 1.4 H 1.3
Estimated Creat Clear > 125 109 118
Albumin 4.0
06/13/25 06/13/25
11:51 15:30
Lactic Acid 1.5 Cancelled
Microbiology Results
06/13/25 11:51 Blood Culture - Preliminary
Blood/Venous No Growth in 48 hours- Final report to follow
06/13/25 11:51 Blood Culture - Preliminary
Blood/Venous No Growth in 48 hours- Final report to follow
06/13/25 11:53 Wound Culture - Final
Boil Gram Stain - Final
Therapeutic Drug Monitoring
Random Vancomycin 13.9 ug/ml 06/15/25 12:54
[2025-06-15] MEDS: XYLOCAINE 1% 10 ML INJ (14:40)
--- NOTE | 2025-06-15 14:59 | CON.MD ---
Consultation - Medical
-
CC: Right foot cellulitis S/P foot injury
History of Present Illness
39-year-old male with a past medical history of hypertension, diabetes, obesity, and gout who presents with worsening right foot pain, swelling, and erythema. Patient reports injuring his right foot with a ladder at work on Monday, 6 days ago.
He was seen by his Workmen's Comp. doctor, x-ray was negative. He was given a walking boot and pain meds. He states that over the week the foot became increasingly red, swollen and painful. He states that his pain is 9 out of 10 in intensity,
and worse with walking. Associate symptoms include nausea and palpitations due to the pain. Denies chest pain, denies shortness of breath. No fever, no vomiting.
Past Medical History
Diabetes
Obesity
Gout
Lumbar radiculopathy
Lumbar fractures
Essential hypertension
Past Surgical History:
Appendectomy
Tonsillectomy
Multiple lumbar spinal surgeries
Neurostimulator placement
Social History
Tobacco: Non-smoker
Alcohol: Occasional
Drug: None
Personal:
Family History
Not pertinent
Allergies
Allergy/AdvReac Type Severity Reaction Status Date / Time
Sulfa (Sulfonamide Allergy Unknown Verified 06/13/25 10:35
Antibiotics)
Home Medications Table - record
�Medication �Instructions �Recorded �Confirmed
hydromorphone 4 mg tablet 4 mg PO QIDPRN PRN severe pain 05/29/17 06/13/25
allopurinol 300 mg tablet 300 mg PO QPM 06/13/25 06/13/25
amlodipine 10 mg-valsartan 160 mg 1 tab PO QPM 06/13/25 06/13/25
tablet
dapagliflozin propanediol 10 mg 10 mg PO QPM 06/13/25 06/13/25
tablet (Farxiga)
duloxetine 30 mg capsule,delayed 30 mg PO QPM 06/13/25 06/13/25
release
ibuprofen 800 mg tablet 800 mg PO DAILY 06/13/25 06/13/25
metformin 500 mg tablet 500 mg PO BID 06/13/25 06/13/25
testosterone cypionate 200 mg/mL 300 mg IM TUSA 06/13/25 06/13/25
intramuscular oil
Physial Exam: Dorsal foot swollen, red and tense with skin dorsal dark and ecchymotic ( likely the original contusion/hematoma from to ladder injury) proximal to the digital sulcus of the lesser digits. There is superficial skin sloughing over the
site. The erythema does not extend past the ankle and the nidus appears to be the site of ecchymosis. There is an area that appears to be abscess formation proximal to that are just distal to the anterior ankle centrally. The foot is very tender
to touch. Upon anesthetizing the area and creating two stab incisions, approximately 10 cc's of purulence were expressed.
Assessment:
Right foot infected hematoma
Abscess
Type 2 Diabetes Mellitus
Plan:
Consent reviewed and discussed. Bedside I&D performed - purulence expressed. Deep wound cultures taken. continue IV antibiotics -Vanco/ Zosyn per ID.
I recommend washout in the OR tomorrow. Surgical consent reviewed, discussed and signed.
Consultation
-
Date/Time Consultation Requested: 06/15/25 9:28am
Date/Time Consultation Performed: 06/15/25 3:30pm
Requesting Provider: Dr. Tadeo
Performing Provider: Dr. Rosen
Reason for Consultation: Right foot cellulitis S/P Right foot injury
--- NOTE | 2025-06-15 15:21 | CM ---
Pt admitted via ED with worsening right foot pain and swelling. He reports injuring his right foot with a ladder at work on June 07. He was seen by his Workers Comp doctor who ordered an x-ray which was negative. He was given a
walking boot and pain meds. Medical work up in progress.
Pt lives with his in a ranch style home with 2 entry steps. He had been (I) amb and ADLs [employer].
DME from prior back injury: walker, shower chair, and is ordering a knee scooter.
Plan: Discharge to home when pain is controlled with no identified needs
[2025-06-15 16:11] VITALS: BP 160/88
[2025-06-15 17:02] LABS: Glucose - Point of Care 322 mg/dl (70-99)
[2025-06-15 17:22] VITALS: BP 115/68
[2025-06-15] MEDS: ZYLOPRIM 300 MG PO (17:47)
[2025-06-15] MEDS: LOVENOX 40 MG SC (17:47)
[2025-06-15] MEDS: NORVASC PO (17:48)
[2025-06-15] MEDS: FARXIGA 10 MG PO (17:48)
[2025-06-15] MEDS: CYMBALTA DELAYED RELEASE 30 MG PO (17:49)
[2025-06-15] MEDS: TYLENOL 650 MG PO (20:16)
[2025-06-15 21:29] LABS: Glucose - Point of Care 267 mg/dl (70-99)
[2025-06-15 23:00] VITALS: BP 140/69
[2025-06-16] VITALS (15 sets, daily range): BP systolic 131–176; BP diastolic 78–109
--- NOTE | 2025-06-16 | PTCARENOTE ---
Pt is NPO @ midnight for OR in the AM. TT house provider about starting fluids. Order for NSS @ 60mL/hr received. See MAR.
[2025-06-16] MEDS: DILAUDID 1 MG IV ×6 (02:52→22:28)
[2025-06-16] MEDS: ZOSYN 100 IV ×4 (02:53→19:37)
[2025-06-16] MEDS: NSS 1000 IV ×2 (02:56→19:35)
[2025-06-16] MEDS: VANCOCIN 275 MG IV ×3 (06:17→22:17)
[2025-06-16] MEDS: SENOKOT-S PO ×2 (07:20→19:41)
[2025-06-16] MEDS: TYLENOL PO ×2 (07:20→16:03)
[2025-06-16 07:35] LABS: Hematocrit 38.7 % (39.0-52.0); Hemoglobin 12.9 g/dL (13.0-18.0); Mean Corp Hgb Conc. 33.3 g/dL (33.0-37.0); Mean Corpuscular Volume 88.8 fL (80.0-94.0); Platelet Count 285 10^3/uL (130-400); Red Cell Dist. Width 13.2 % (11.5-14.5)
[2025-06-16 08:05] LABS: Glucose - Point of Care 256 mg/dl (70-99)
[2025-06-16 08:11] LABS: Blood Urea Nitrogen 24 mg/dl (9-20); Calcium 8.5 mg/dl (8.4-10.2); Carbon Dioxide 23 mmol/L (22-30); Chloride 104 mmol/L (98-107); Estimated Creatinine Clearance 118 ml/min; Glucose 195 mg/dl (70-99); Potassium 4.9 mmol/L (3.5-5.1); Sodium 135 mmol/L (135-145); eGFR > 60.00
--- NOTE | 2025-06-16 08:17 | PHA.VAN.FU ---
Addendum entered and electronically signed by Indu Whelan [facility] 06/16/25 14:13:
Assessment:
Regimen: VANCO 1250 MG Q8H
Levels drawn: at steady state
Peak: 26.6 mcg/mL (drawn 55 min after previous infusion ended)
Trough: 14.9 mcg/mL (drawn appropriately)
ke (H^1)= 0.1224
t1/2 (H) = 5.7
Cmax (mcg/mL) = 29.8
Cmin (mcg/mL)= 13.4
Vd (L) = 61.44
Vanc CL (mL/min) = 125.39
AUC (mcg*H/mL) = 497
Plan:
Continue VANCO 1250 MG Q8H
Consider repeat levels weekly or sooner if clinical picture changes.
Original Note:
Vancomycin Assessment / Plan
- Assessment
Renal Function: Stable
WBC's are: Trending Down
In the past 24 hrs, patient has been: Febrile (TMAX 100.7 F)
Concomitant Antimicrobials: PIPERACILLIN/TAZOBACTAM
- Monitoring Plan
Peak Level: 06/16 @0900
Trough Level: 06/16 @1330
- Follow Up
Pharmacy will continue to follow.
Vancomycin Follow UP
- -
Patient Age: 39
Patient Sex: Male
Vancomycin Day #: 3
Indication: Skin And Soft Tissue
Requesting Provider: DR. NICHOLSON
Pertinent Antimicrobial Allergies:
SULFA (UNKNOWN)
Height / Weight:
Height 6 ft 3 in
Actual Weight 140.614 kg
IBW in k
Adjusted BW in k
Pertinent Past Medical History: BMI 38
- Vital Signs / Lab Results
Temp Pulse Resp BP Pulse Ox
97.8 F 95 17 135/90 97
06/16/25 07:13 06/16/25 07:13 06/16/25 07:13 06/16/25 07:13 06/16/25 07:13
Lab Results - Hematology
06/13/25 06/14/25 06/15/25
10:39 05:46 07:45
WBC 16.5 H 19.7 H 18.5 H
06/16/25
07:24
WBC 14.1 H
Lab Results - Chemistry
06/13/25 06/14/25 06/15/25
10:39 05:46 07:45
BUN 19 17 20
Creatinine 1.2 1.4 H 1.3
Estimated Creat Clear > 125 109 118
Albumin 4.0
06/16/25
07:24
BUN 24 H
Creatinine 1.3
Estimated Creat Clear 118
Albumin
06/13/25 06/13/25
11:51 15:30
Lactic Acid 1.5 Cancelled
Microbiology Results
06/13/25 11:51 Blood Culture - Preliminary
Blood/Venous No Growth in 48 hours- Final report to follow
06/13/25 11:51 Blood Culture - Preliminary
Blood/Venous No Growth in 48 hours- Final report to follow
06/13/25 11:53 Wound Culture - Final
Boil Gram Stain - Final
Therapeutic Drug Monitoring
Random Vancomycin 13.9 ug/ml 06/15/25 12:54
--- NOTE | 2025-06-16 08:47 | W.PN.POD ---
Today's Communication
Today's Communication
Right foot infected hematoma/cellulitis
Assessment / Plan
-
Assessment:
Right foot infected hematoma
Abscess
Type 2 Diabetes Mellitus
Plan:
Surgical Consent reviewed and discussed, we discussed risks, benefits and complications of surgery. added to OR schedule for today. Patient is npo. Deep wound cultures pending. continue IV antibiotics -Vanco/ Zosyn per ID.
Subjective
Chief Complaint
Right foot infected hematoma/celluitis
Subjective
Patient is awake, complains of right foot pain but states some improvement since yesterday.
Objective
Temp Pulse Resp BP Pulse Ox
97.8 F 95 17 135/90 97
06/16/25 07:13 06/16/25 07:13 06/16/25 07:13 06/16/25 07:13 06/16/25 07:13
06/16/25 07:24
06/16/25 07:24
Vital Signs and Lab results were reviewed.
Physical Exam
Physical Exam
Dorsal foot swollen, red with dorsal skin dark and ecchymotic with skin slough (likely the original contusion/hematoma from to ladder injury) proximal to the digital sulcus of the lesser digits. Foot overall is less tense and less tender to light
touch. The erythema does extend just past the ankle but the nidus appears to be the site of ecchymosis on the dorsal foot. There is an area that appears to be abscess formation proximal to that are just distal to the anterior ankle centrally
along extensor tendon that was a site of drianage yesterday. The foot is painful to palpation. Some purulence is expressed with compression
--- NOTE | 2025-06-16 11:59 | W.PN.HOSP.TC ---
Addendum entered and electronically signed by Leidy Ronquilol MD 06/16/25 12:56:
# Hyponatremia
Original Note:
Today's Communication/Plan
-
see A/P
Assessment / Plan
Assessment / Plan
HPI: 39-year-old male with past medical history of hypertension, diabetes, obesity, gout; who presented with worsening right foot pain, swelling, and erythema. Patient reported injuring his right foot with a ladder at work 6 days [employer]. He was seen
by his Workmen's Comp. doctor, x-ray was negative. He was given a walking boot and pain meds. He returned to his Workmen's Comp. doctor due to worsening pain, and his doctor sent him to the ER.
A/P:
# Sepsis POA 2/2 Right foot cellulitis, infected hematoma
# Right foot traumatic injury
Right lower extremity CT negative for osteomyelitis or fracture, showed severe edema
Status post vancomycin and Unasyn in the ED, Appreciate ID input, recommend vancomycin/Zosyn
Podiatry on board, s/p Bedside I&D and purulence expressed. Recc OR for washout and deep wound cultures , plan for 06/16
# Elevated creatinine
SCr 1.3 today
Hold home metformin, discontinued Toradol
# Uncontrolled type 2 diabetes
Patient reports that he becomes hyperglycemic due to stress and pain, but has a history of BS dropping to the 40s with insulin
Continue treating pain, diabetic diet, sliding scale insulin
Hold home metformin due to elevated Cr
# Hyperkalemia
Hold home valsartan
Resolved
# Essential hypertension
Hold home valsartan due to hyperkalemia
Continue amlodipine 10 mg every afternoon
Started clonidine 0.1 mg 3 times daily
# Chronic back pain
# History of lumbar fractures
Has spinal stimulator
# Obesity due to excess calories
Affects all aspects of care
DVT prophylaxis�subcu Lovenox
Full code
DW RN
DW at bedside
Anticipated Discharge: > 48 hours
Subjective/Interval History
-
Date of Service: June 16, 2025
Objective Data
-
Labs:
Laboratory Results
06/16/25
07:24
WBC 14.1 H
Hgb 12.9 L
Hct 38.7 L
Plt Count 285
Sodium 135
Potassium 4.9
Chloride 104
Carbon Dioxide 23
BUN 24 H
Creatinine 1.3
Glucose 195 H
Calcium 8.5
Vital Signs:
Vital Signs
Temp Pulse Resp BP Pulse Ox
36.6 C 95 17 135/90 97
06/16/25 10:38 06/16/25 07:13 06/16/25 07:13 06/16/25 07:13 06/16/25 09:14
I&O
06/15/25 06/16/25 06/17/25
06:59 06:59 06:59
Intake Total 3470 / 3470 960 / 960
Output Total 5525 / 5525 2700 / 2700
Balance -2054 / -2054 -1739 / -1739
Review of Systems
-
History Source: Patient
All other systems: Reviewed and negative
Physical Exam
-
General: Well Developed, Well Nourished, No Apparent Distress, Comfortable and Conversant; Negative Respiratory Distress
HEENT: Normocephalic, Atraumatic, Nose Appears Normal and Ears Appear Normal; Negative Oxygen
Respiratory: Clear to Auscultation and Non Labored Respirations; Negative Accessory Resp Muscle Use
Cardiac: Regular Rhythm and S1/S2
GI: Soft, Nontender, Nondistended and Normal Bowel Sounds
Skin: Warm, Dry and Other (see wound care note)
Neuro: Awake, Alert and Oriented
Psych: Calm and Intact Judgement/Insight
Data Reviewed
-
CT Scan: Report Reviewed by me
Labs: Labs Reviewed by me
--- NOTE | 2025-06-16 12:06 | W.PN.ID1 ---
Date of Service
Date of Service: June 16, 2025
Today's Communication
Continue current abx's.
Assessment / Plan
# Severe purulent cellulitis right foot
Recent trauma to foot - hit against ladder through work boot.
# Fever trending down
# Leukocytosis - improving
# DM
-Bcx neg to date
- CT no osteo/abscess
- Appreciated Podiatry. 06/15 bedside I+D 10cc pus.
Prelim cx S. aureus
- To OR for washout today.
- Continue Vancomycin and Zosyn (d3) pending cx data.
- Follow temps/wbc.
Chief Complaint
-: Cellulitis
Subjective / Review of Systems
+ foot pain
Vital Signs / Physical Exam
Vital Signs
Vital Signs
Temp Pulse Resp BP Pulse Ox
97.9 F 95 17 135/90 97
06/16/25 10:38 06/16/25 07:13 06/16/25 07:13 06/16/25 07:13 06/16/25 09:14
Physical Exam
Constitutional: No Acute Distress
Cardiovascular: Regular Rate and S1/S2
Pulmonary: Clear
Gastrointestinal: Soft, Non Tender and Non Distended
Genito-Urinary: Negative CVA Tenderness
Wound: Other (right foot dressing dry. )
Neurological: AO x 3
Objective Data
Lab Data
Lab Results
06/16/25 07:24
06/16/25 07:24
ESR Cancelled 06/15/25 09:30
Estimated Creat Clear 118 ml/min 06/16/25 07:24
Lactic Acid Cancelled 06/13/25 15:30
Total Bilirubin 1.3 mg/dl (0.2-1.3) 06/13/25 10:39
AST 23 U/L (17-59) 06/13/25 10:39
ALT 27 U/L (0-50) 06/13/25 10:39
Alkaline Phosphatase 104 U/L (38-126) 06/13/25 10:39
C-Reactive Protein > 270.00 mg/L (0.0-10.00) H 06/15/25 07:45
Most recent labs reviewed.
Micro Results:
06/13/25 11:51 Blood Culture - Preliminary
Blood/Venous No Growth in 72 hours- Final report to follow
06/13/25 11:51 Blood Culture - Preliminary
Blood/Venous No Growth in 72 hours- Final report to follow
06/15/25 15:12 Wound Culture - Preliminary
Foot - Right Staphylococcus aureus
Gram Stain - Preliminary
06/13/25 11:53 Wound Culture - Final
Boil Gram Stain - Final
06/13/25 CT RLE: There is soft tissue inflammation but no evidence of osteomyelitis, fracture or abscess
[2025-06-16 12:14] LABS: Glucose - Point of Care 150 mg/dl (70-99)
--- NOTE | 2025-06-16 12:29 | PN.CDI ---
CDI
- -
CDI:
Physician Documentation Request
Admit Date: 06/13/25 15:12
Dear Doctor Shima,
Please review the following and provide your response in the progress notes.
Clinical Indicators:
- Patient admit for sepsis due to right foot cellulitis
- Uncontrolled type 2 diabetes
- Sodium labs as follows:
Laboratory Tests
06/13/25 06/14/25 06/15/25
10:39 05:46 07:45
Sodium 133 L 133 L 132 L
Please clarify ithe appropriate diagnosis, if significant, that supports the above abnormalities and additional evaluation, monitoring and/or treatment rendered:
Hyponatremia
Abnormal lab value only
Other (please specify)
Use of terms such as suspected, likely, concern for, or probable (associated with a specific diagnosis that is being evaluated, monitored, or treated as if it exists) are acceptable and can be coded in the inpatient setting, when documented at the
time of discharge.
Thank you,
Sona Smith RN
CDI Specialist
Please use your independent medical judgment in providing your response.
--- NOTE | 2025-06-16 15:53 | CM ---
CM reviewed chart- ADC >48 hours
Plan for OR today for I&D R. foot
ID following for abx
CM will continue to follow for dc planning
Discharge Disposition- anticipate home, follow for VN/abx/WOC needs
[2025-06-16] MEDS: CATAPRES PO (16:02)
[2025-06-16 16:35] LABS: Glucose - Point of Care 165 mg/dl (70-99)
--- NOTE | 2025-06-16 16:37 | W.PN.UPDATE ---
Update Note
Progress Note Update
S/P Right foot incision and drainage - seen operative report. Additional deep surgical cultures taken. continue antibiotics per ID. Plan for dressing change tomorrow morning - flush /pack. May weight bear in surgical shoe. Pain medication as
needed.
[2025-06-16] MEDS: DILAUDID 0.5 MG IV ×3 (16:41→17:02)
[2025-06-16 17:41] LABS: Glucose - Point of Care 148 mg/dl (70-99)
--- NOTE | 2025-06-16 17:45 | PTCARENOTE ---
Received pt from OR via bed. AAOx3. Pt c/o 06/27 pain in RLE, see MAR. Bolood pressure elevated, will check. RLE assessed and CDI, leg elevated on pillows. Pt informed of diet order.
[2025-06-16] MEDS: DILAUDID 8 MG PO ×2 (18:17→22:19)
[2025-06-16] MEDS: CYMBALTA DELAYED RELEASE 30 MG PO (18:29)
[2025-06-16] MEDS: NORVASC 10 MG PO (18:29)
[2025-06-16] MEDS: FARXIGA 10 MG PO (18:29)
[2025-06-16] MEDS: ZYLOPRIM 300 MG PO (18:29)
[2025-06-16] MEDS: LOVENOX 40 MG SC (18:31)
[2025-06-16 21:34] LABS: Glucose - Point of Care 332 mg/dl (70-99)
[2025-06-16] MEDS: CATAPRES 0.1 MG PO (22:16)
[2025-06-16] MEDS: TYLENOL 1000 MG PO (22:16)
[2025-06-17] MEDS: DILAUDID 1 MG IV ×4 (02:11→20:16)
[2025-06-17] MEDS: ZOSYN 100 IV ×2 (02:12→09:11)
[2025-06-17] MEDS: DILAUDID 8 MG PO ×3 (02:51→18:00)
[2025-06-17 03:00] VITALS: BP 135/79
[2025-06-17 06:24] LABS: Hematocrit 38.9 % (39.0-52.0); Hemoglobin 12.8 g/dL (13.0-18.0); Mean Corp Hgb Conc. 32.9 g/dL (33.0-37.0); Mean Corpuscular Volume 88.4 fL (80.0-94.0); Platelet Count 316 10^3/uL (130-400); Red Cell Dist. Width 13.3 % (11.5-14.5)
[2025-06-17] MEDS: VANCOCIN 275 MG IV (06:42)
[2025-06-17 06:50] LABS: Blood Urea Nitrogen 18 mg/dl (9-20); Calcium 8.3 mg/dl (8.4-10.2); Carbon Dioxide 29 mmol/L (22-30); Chloride 101 mmol/L (98-107); Estimated Creatinine Clearance 109 ml/min; Glucose 322 mg/dl (70-99); Magnesium 2.5 mg/dl (1.6-2.3); Potassium 5.1 mmol/L (3.5-5.1); Sodium 135 mmol/L (135-145); eGFR > 60.00
[2025-06-17 07:00] VITALS: BP 136/81
[2025-06-17 07:30] LABS: Glucose - Point of Care 251 mg/dl (70-99)
--- NOTE | 2025-06-17 08:48 | PHA.VAN.FU ---
Vancomycin Assessment / Plan
- Assessment
Renal Function: SCR Increasing
WBC's are: Trending Down
In the past 24 hrs, patient has been: Febrile (100.9 F)
Concomitant Antimicrobials: PIPERACILLIN/TAZOBACTAM
- Dosing Plan
Continue: VANCO 1250MG Q8H
- Monitoring Plan
Level(s) appropriate: Recheck trough at minimum of weekly intervals, Repeat sooner for changes in renal function or clinical status
- Follow Up
Pharmacy will continue to follow.
Vancomycin Follow UP
- -
Patient Age: 39
Patient Sex: Male
Vancomycin Day #: 4
Indication: Skin And Soft Tissue
Requesting Provider: DR. NICHOLSON
Pertinent Antimicrobial Allergies:
SULFA (UNKNOWN)
Height / Weight:
Height 6 ft 3 in
Actual Weight 140.614 kg
IBW in k
Adjusted BW in k
Pertinent Past Medical History: BMI 38
- Vital Signs / Lab Results
Temp Pulse Resp BP Pulse Ox
98.4 F 89 18 136/81 94
06/17/25 07:00 06/17/25 07:00 06/17/25 07:00 06/17/25 07:00 06/17/25 07:00
Lab Results - Hematology
06/15/25 06/16/25 06/17/25
07:45 07:24 06:03
WBC 18.5 H 14.1 H 12.6 H
Lab Results - Chemistry
06/15/25 06/16/25 06/17/25
07:45 07:24 06:03
BUN 20 24 H 18
Creatinine 1.3 1.3 1.4 H
Estimated Creat Clear 118 118 109
Microbiology Results
06/16/25 15:48 Gram Stain - Preliminary
Foot - Right
06/13/25 11:51 Blood Culture - Preliminary
Blood/Venous No Growth in 72 hours- Final report to follow
06/13/25 11:51 Blood Culture - Preliminary
Blood/Venous No Growth in 72 hours- Final report to follow
06/15/25 15:12 Wound Culture - Preliminary
Foot - Right Staphylococcus aureus
Gram Stain - Preliminary
06/13/25 11:53 Wound Culture - Final
Boil Gram Stain - Final
Therapeutic Drug Monitoring
Vancomycin Peak 26.6 ug/ml (18-26) H 06/16/25 08:42
Vancomycin Trough 14.9 ug/ml (5-20) 06/16/25 13:26
Random Vancomycin 13.9 ug/ml 06/15/25 12:54
[2025-06-17] MEDS: TYLENOL 1000 MG PO ×3 (09:08→22:10)
[2025-06-17] MEDS: SENOKOT-S PO ×2 (09:09→20:22)
[2025-06-17] MEDS: CATAPRES 0.1 MG PO ×3 (09:12→22:10)
--- NOTE | 2025-06-17 09:49 | W.PN.HOSP.TC ---
Today's Communication/Plan
-
see A/P
Assessment / Plan
Assessment / Plan
HPI: 39-year-old male with past medical history of hypertension, diabetes, obesity, gout; who presented with worsening right foot pain, swelling, and erythema. Patient reported injuring his right foot with a ladder at work 6 days [employer]. He was seen
by his Workmen's Comp. doctor, x-ray was negative. He was given a walking boot and pain meds. He returned to his Workmen's Comp. doctor due to worsening pain, and his doctor sent him to the ER.
A/P:
# Sepsis POA 2/2 Right foot cellulitis, infected hematoma
# Right foot traumatic injury
Right lower extremity CT negative for osteomyelitis or fracture, showed severe edema
Status post vancomycin and Unasyn in the ED, Appreciate ID input, recommend vancomycin/Zosyn
Podiatry on board, s/p Bedside I&D and purulence expressed.
s/p OR washout and deep wound culture sampling 06/16
Follow deep wound culture
# Elevated creatinine
SCr 1.4 today
Hold home metformin, discontinued Toradol
# Uncontrolled type 2 diabetes
Patient reports that he becomes hyperglycemic due to stress and pain, but has a history of BS dropping to the 40s with insulin
Continue treating pain, diabetic diet, sliding scale insulin
Hold home metformin due to elevated Cr
# Hyperkalemia
Hold home valsartan
Resolved
# Essential hypertension
Hold home valsartan due to hyperkalemia
Continue amlodipine 10 mg every afternoon
Started clonidine 0.1 mg 3 times daily
# Chronic back pain
# History of lumbar fractures
Has spinal stimulator
# Obesity due to excess calories
Affects all aspects of care
DVT prophylaxis�subcu Lovenox
Full code
Anticipated Discharge: 24 - 48 hours
Subjective/Interval History
-
Date of Service: June 17, 2025
Objective Data
-
Labs:
Laboratory Results
06/17/25
06:03
WBC 12.6 H
Hgb 12.8 L
Hct 38.9 L
Plt Count 316
Sodium 135
Potassium 5.1
Chloride 101
Carbon Dioxide 29
BUN 18
Creatinine 1.4 H
Glucose 322 H
Calcium 8.3 L
Vital Signs:
Vital Signs
Temp Pulse Resp BP Pulse Ox
36.9 C 86 18 162/95 94
06/17/25 07:00 06/17/25 09:12 06/17/25 07:00 06/17/25 09:12 06/17/25 07:00
I&O
06/16/25 06/17/25 06/18/25
06:59 06:59 06:59
Intake Total 960 / 960 2930 / 2930
Output Total 2700 / 2700 4375 / 4375
Balance -1740 / -1740 -1445 / -1445
Review of Systems
-
History Source: Patient
All other systems: Reviewed and negative
Physical Exam
-
General: Well Developed, Well Nourished, No Apparent Distress, Comfortable and Conversant; Negative Respiratory Distress
HEENT: Normocephalic, Atraumatic, Nose Appears Normal and Ears Appear Normal; Negative Oxygen
Respiratory: Clear to Auscultation and Non Labored Respirations; Negative Accessory Resp Muscle Use
Cardiac: Regular Rhythm and S1/S2
GI: Soft, Nontender, Nondistended and Normal Bowel Sounds
Skin: Warm, Dry and Other (see wound care note)
Neuro: Awake, Alert and Oriented
Psych: Calm and Intact Judgement/Insight
Data Reviewed
-
CT Scan: Report Reviewed by me
Labs: Labs Reviewed by me
[2025-06-17 11:41] LABS: Glucose - Point of Care 233 mg/dl (70-99)
--- NOTE | 2025-06-17 12:36 | W.PN.ID1 ---
Date of Service
Date of Service: June 17, 2025
Today's Communication
Deescalate to cefazolin.
Assessment / Plan
# Severe purulent cellulitis and abscesses right foot
Recent trauma to foot - hit against ladder through work boot.
# Fever trending down
# Leukocytosis - improving
# DM
-Bcx neg to date
- CT no osteo/abscess
- Appreciated Podiatry. 06/15 bedside I+D 10cc pus.
cx: MSSA
- 06/16 s/p OR washout
OR cx: MSSA
- Additional surgery per Podiatry
- De-escalate Vancomycin and Zosyn (d4) to cefazolin [id number].
- Follow temps/wbc.
Chief Complaint
-: Cellulitis
Subjective / Review of Systems
c/o pain during dressing change
Vital Signs / Physical Exam
Vital Signs
Vital Signs
Temp Pulse Resp BP Pulse Ox
98.4 F 86 18 162/95 94
06/17/25 07:00 06/17/25 09:12 06/17/25 07:00 06/17/25 09:12 06/17/25 07:00
Selected Entries
06/16/25
22:00
Temp 100.9 F H
Physical Exam
Cardiovascular: Regular Rate and S1/S2
Pulmonary: Clear
Gastrointestinal: Soft, Non Tender and Non Distended
Genito-Urinary: Negative CVA Tenderness
Extremities: Edema (Right foot edema decreasing. )
Wound: Other (Examined with Dr. Rosen at bedside. Large wound on proximal dorsal forefoot, some necrosis; smaller proximal wound; decreasing erythema)
Neurological: AO x 3
Objective Data
Lab Data
Lab Results
06/17/25 06:03
06/17/25 06:03
ESR Cancelled 06/15/25 09:30
Estimated Creat Clear 109 ml/min 06/17/25 06:03
Lactic Acid Cancelled 06/13/25 15:30
Total Bilirubin 1.3 mg/dl (0.2-1.3) 06/13/25 10:39
AST 23 U/L (17-59) 06/13/25 10:39
ALT 27 U/L (0-50) 06/13/25 10:39
Alkaline Phosphatase 104 U/L (38-126) 06/13/25 10:39
C-Reactive Protein > 270.00 mg/L (0.0-10.00) H 06/15/25 07:45
Most recent labs reviewed.
Micro Results:
06/13/25 11:51 Blood Culture - Preliminary
Blood/Venous No Growth in 4 days- Final report to follow
06/13/25 11:51 Blood Culture - Preliminary
Blood/Venous No Growth in 4 days- Final report to follow
06/16/25 15:48 Wound Culture - Preliminary
Foot - Right S aureus-Methicillin Sensitive
Gram Stain - Preliminary
06/16/25 15:48 Anaerobic Culture - Preliminary
Foot - Right Culture pending. Anaerobic cultures are examined after 3
days incubation. Additional information to follow.
06/15/25 15:12 Wound Culture - Final
Foot - Right S aureus-Methicillin Sensitive
Gram Stain - Final
06/13/25 11:53 Wound Culture - Final
Boil Gram Stain - Final
06/13/25 CT RLE: There is soft tissue inflammation but no evidence of osteomyelitis, fracture or abscess
Care Review
Plan reviewed with: Physician (Dr. Rosen)
--- NOTE | 2025-06-17 12:36 | W.PN.POD ---
Today's Communication
Today's Communication
Right foot S/P I&D infected hematoma
Assessment / Plan
-
Assessment:
S/P I&D right foot abscess/infected hematoma - POD #1
Type 2 Diabetes Mellitus
Plan:
The site was flushed and repacked today. We discussed the possibility of repeat debridement on Monday with possible integra graft and/or wound vac given the soft tissue defect and once cellilitis resolves. Deep wound cultures pending. continue IV
antibiotics -Vanco/ Zosyn per ID.
Subjective
Chief Complaint
S/P Right foot I&D secondary to infected hematoma/abscess following crush injury
Subjective
Patient is awake and conversational. He complains of foot pain, but relates improvement since admission and post op.
Objective
Temp Pulse Resp BP Pulse Ox
98.4 F 86 18 162/95 94
06/17/25 07:00 06/17/25 09:12 06/17/25 07:00 06/17/25 09:12 06/17/25 07:00
06/17/25 06:03
06/17/25 06:03
Vital Signs and Lab results were reviewed.
Physical Exam
Physical Exam
Palpable pulses, foot is perfused. Digital ROM is intact. Digits are responsive to light touch. No pain or erythema on the plantar foot. No fullness or ecchymosis in the plantar vault. No sensitivity to touch on the plantar foot, he can
perceive light touch. Dorsal foot has edema with blanchable erythema, but improving from admission. Surgical site with packing in place. There is a 4 cm x 6 cm soft tissue defect just proximal to the lesser digits at the nidus of infection and
the original impact of the ladder. Base of wound appears viable. No bone or tendon exposed. There is no purulence expressed today. There is dark ecchymosis around the periphery of the wound. Foot overall is less tense and less tender to light
touch today. The erythema is receding a the level of the ankle.
[2025-06-17 13:05] VITALS: BP 145/85; BP 147/82; PULSE 85; O2SAT 93
[2025-06-17 13:10] VITALS: BP 145/85; BP 147/82; PULSE 88; O2SAT 92
--- NOTE | 2025-06-17 13:28 | CM ---
Addendum entered by Kandi Vallejo 06/17/25 13:51:
patient stated this is a Workman Comp case
Client ID #:[id number]
SUE #: [id number]

CM called Tari in admissions & will update & reach out to patient for additional information
Original Note:
Patient seen at bedside
Right foot S/P I&D infected hematoma
The site was flushed and repacked today by Dr. Rosen
possibility of repeat debridement on Monday with possible integra graft and/or wound vac
Cont on IV antibiotics
PLAN: anticipate home, follow for VN/abx/WOC needs
--- NOTE | 2025-06-17 13:32 | WOUNDNOTE ---
SEVERINO RN NOTE: Per Dr. Rosen's note-S/P Right foot I&D secondary to infected hematoma/abscess following crush injury. Dressing changed today by Meat Dresser, cultures pending and for possible repeat I&D on Monday. Will follow along peripherally and
assist as needed.
[2025-06-17] MEDS: ANCEF 10 IV ×2 (14:29→22:11)
[2025-06-17 15:00] VITALS: BP 136/86
--- NOTE | 2025-06-17 15:17 | PTCARENOTE ---
Addendum entered by Lily Sotomayor RN 06/18/25 09:51:
Received consult for insulin instruction on 06/18/2025, as of 06/17/2025 patient is refusing insulin.
Original Note:
06/17/2025 DIABETES EDUCATION CONSULTATION
I met with patient and his significant otherto review diabetes management. He is currently inpatient with R. foot infection, I & D completed
06/16/2025. Current HbA1c is 8/9%.
He is currently on Farxiga 10 mg QD at at home also takes Metformin 500 mg BID. He states in the past while inpatient he was given rapid acting insulin and it dropped his BS from 440's to 40 mg/dL with 2 units. He is currently refusing insulin
while inpatient.
I educated on physiology of T2D, organ damage, managing with medications, monitoring BG, nutrition, activity, sleep and managing stress. I reinforced signs of hyperglycemia, hypoglycemia and hypoglycemia protocol; BS parameters and recommended HbA1c
goals, glucometer and CGM instructions, glucose tracker, medic alert bracelet and outpatient DSME program. Written material provided.
He has a glucometer and supplies at home but rarely monitors. He declined glucometer sample kit.
Encouraged patient to follow up with his PCP for post d/c appointment and to monitor medication and blood glucose levels. Provided list of endocrinologists if desired, to contact insurance company to verify in network status. Patient verbalized
understanding.
[2025-06-17 16:44] LABS: Glucose - Point of Care 257 mg/dl (70-99)
[2025-06-17] MEDS: FARXIGA 10 MG PO (17:44)
[2025-06-17] MEDS: ZYLOPRIM 300 MG PO (17:44)
[2025-06-17] MEDS: NORVASC 10 MG PO (17:44)
[2025-06-17] MEDS: CYMBALTA DELAYED RELEASE 30 MG PO (17:44)
[2025-06-17] MEDS: LOVENOX 40 MG SC (17:44)
[2025-06-17 21:29] LABS: Glucose - Point of Care 290 mg/dl (70-99)
[2025-06-17] MEDS: LANTUS 0.05 UNITS SC (22:11)
[2025-06-17 23:00] VITALS: BP 139/80
[2025-06-18] MEDS: ANCEF 10 IV ×3 (06:18→22:21)
[2025-06-18] MEDS: DILAUDID 1 MG IV ×4 (06:26→22:37)
[2025-06-18 06:59] LABS: Hematocrit 39.8 % (39.0-52.0); Hemoglobin 13.3 g/dL (13.0-18.0); Mean Corp Hgb Conc. 33.4 g/dL (33.0-37.0); Mean Corpuscular Volume 88.4 fL (80.0-94.0); Platelet Count 319 10^3/uL (130-400); Red Cell Dist. Width 13.2 % (11.5-14.5)
[2025-06-18 07:00] VITALS: BP 152/95
[2025-06-18 07:24] LABS: Blood Urea Nitrogen 17 mg/dl (9-20); Calcium 8.8 mg/dl (8.4-10.2); Carbon Dioxide 27 mmol/L (22-30); Chloride 104 mmol/L (98-107); Estimated Creatinine Clearance > 125 ml/min; Glucose 194 mg/dl (70-99); Potassium 5.0 mmol/L (3.5-5.1); Sodium 137 mmol/L (135-145); eGFR > 60.00
[2025-06-18 07:44] LABS: Glucose - Point of Care 228 mg/dl (70-99)
[2025-06-18] MEDS: CATAPRES 0.1 MG PO ×3 (08:15→22:20)
[2025-06-18] MEDS: TYLENOL 1000 MG PO ×3 (08:19→22:25)
[2025-06-18] MEDS: SENOKOT-S PO ×2 (08:19→21:00)
--- NOTE | 2025-06-18 08:45 | W.PN.POD ---
Today's Communication
Today's Communication
S/P I&D right foot
Assessment / Plan
-
Assessment:
S/P I&D right foot abscess/infected hematoma - POD #2
Type 2 Diabetes Mellitus
Plan:
The site was flushed and repacked today, skin protectant and xeroform applied to the wound periphery. We discussed the repeat debridement on Monday with possible integra graft and/or possible wound vac given the soft tissue defect once cellulitis
resolves. Deep wound cultures positive for MSSA continue IV antibiotics - cefazolin [id number]. WBC normal today
Subjective
Chief Complaint
Right foot S/P I&D abscess/ infected hematoma
Subjective
Patient is resting comfortably. Relates some pain but overall improvement since admission
Objective
Temp Pulse Resp BP Pulse Ox
98.5 F 92 17 152/95 96
06/18/25 07:00 06/18/25 08:15 06/18/25 07:00 06/18/25 08:15 06/18/25 07:00
06/18/25 06:37
06/18/25 06:37
Vital Signs and Lab results were reviewed.
Physical Exam
Physical Exam
Palpable pulses, foot is perfused. Digital ROM is intact. Digits are responsive to light touch. No pain or erythema on the plantar foot. No fullness or ecchymosis in the plantar vault. No sensitivity to touch on the plantar foot, he can
perceive light touch. Dorsal foot has edema with blanchable erythema, but improving from admission. Surgical site with packing in place. There is a 4 cm x 6 cm soft tissue defect just proximal to the lesser digits at the nidus of infection and
the original impact of the ladder. Base of wound appears viable- fibrogranular with deep fascial tissue exposed. No bone or tendon exposed. There is no purulence expressed today with compression. There is dark ecchymosis around the periphery of
the wound. Foot overall is less tense and less tender to light touch today. The erythema is receding at the level of the ankle and is more focal to the dorsolateral foot.
[2025-06-18] MEDS: GLUCOPHAGE 1000 MG PO ×2 (09:30→18:28)
[2025-06-18 10:25] VITALS: BP 161/95; O2SAT 95
--- NOTE | 2025-06-18 10:43 | CM ---
Patient seen at bedside
cont on IV antibiotic
S/P I&D right foot
per podiatry note-discussed the repeat debridement on Monday with possible integra graft and/or possible wound vac given the soft tissue defect once cellulitis resolves
workmans comp updated in [employer]
PLAN: anticipate home when stable, CM to follow for VN needs
--- NOTE | 2025-06-18 11:12 | W.PN.HOSP.TC ---
Today's Communication/Plan
-
see A/P
Assessment / Plan
Assessment / Plan
HPI: 39-year-old male with past medical history of hypertension, diabetes, obesity, gout; who presented with worsening right foot pain, swelling, and erythema. Patient reported injuring his right foot with a ladder at work 6 days [employer]. He was seen
by his Workmen's Comp. doctor, x-ray was negative. He was given a walking boot and pain meds. He returned to his Workmen's Comp. doctor due to worsening pain, and his doctor sent him to the ER.
A/P:
# Sepsis POA 2/2 Right foot cellulitis, infected hematoma
# Right foot traumatic injury
Right lower extremity CT negative for osteomyelitis or fracture, showed severe edema
Podiatry on board, s/p Bedside I&D and purulence was expressed.
s/p OR washout and deep wound culture sampling 06/16
Plan for repeat debridement on Wednesday 06/20 with possible integra graft and/or possible wound vac given the soft tissue defect
deep wound culture growing MSSA , Abx deescalated to cefazolin.
# Elevated creatinine
SCr 1.2 today
resumed home metformin,
discontinued Toradol
# Uncontrolled type 2 diabetes
Patient reports that he becomes hyperglycemic due to stress and pain, but has a history of BS dropping to the 40s with insulin
Continue treating pain, cont diabetic diet, sliding scale insulin
resumed home metformin
Added Lantus 5 units HS
DM [employer] consulted
# Hyperkalemia
Hold home valsartan
Resolved
# Essential hypertension
Hold home valsartan due to hyperkalemia
Continue amlodipine 10 mg every afternoon
Started clonidine 0.1 mg 3 times daily
# Chronic back pain
# History of lumbar fractures
Has spinal stimulator
# Obesity due to excess calories
Affects all aspects of care
DVT prophylaxis�subcu Lovenox
Full code
Dispo: PT recc HH
total time 51 min
Anticipated Discharge: > 48 hours
Subjective/Interval History
-
Date of Service: June 18, 2025
Objective Data
-
Labs:
Laboratory Results
06/18/25
06:37
WBC 10.2
Hgb 13.3
Hct 39.8
Plt Count 319
Sodium 137
Potassium 5.0
Chloride 104
Carbon Dioxide 27
BUN 17
Creatinine 1.2
Glucose 194 H
Calcium 8.8
Vital Signs:
Vital Signs
Temp Pulse Resp BP Pulse Ox
36.9 C 92 17 152/95 96
06/18/25 07:00 06/18/25 08:15 06/18/25 07:00 06/18/25 08:15 06/18/25 07:00
I&O
06/17/25 06/18/25 06/19/25
06:59 06:59 06:59
Intake Total 2930 / 2930 1000 / 1000 2940 / 2940
Output Total 4375 / 4375 2675 / 2675
Balance -1445 / -1445 1000 / 1000 265 / 265
Review of Systems
-
History Source: Patient
All other systems: Reviewed and negative
Physical Exam
-
General: Well Developed, Well Nourished, No Apparent Distress, Comfortable and Conversant; Negative Respiratory Distress
HEENT: Normocephalic, Atraumatic, Nose Appears Normal and Ears Appear Normal; Negative Oxygen
Respiratory: Clear to Auscultation and Non Labored Respirations; Negative Accessory Resp Muscle Use
Cardiac: Regular Rhythm and S1/S2
GI: Soft, Nontender, Nondistended and Normal Bowel Sounds
Skin: Warm, Dry and Other (see wound care note)
Neuro: Awake, Alert and Oriented
Psych: Calm and Intact Judgement/Insight
Data Reviewed
-
CT Scan: Report Reviewed by me
Labs: Labs Reviewed by me
[2025-06-18 11:49] LABS: Glucose - Point of Care 252 mg/dl (70-99)
--- NOTE | 2025-06-18 12:51 | PN.DE.MGMTRT ---
Insulin Management
- -
06/18/2025 Diabetes Management Consult
Patient admitted 06/13 with worsening R foot pain and redness - I & D R foot. Glucose 395 on admission. PMH HTN, diabetes, obesity, gout. Prior to admission was taking metformin 500 mg BID, farxiga 10 mg daily. A1C 8.9%, cr 1.2, eGFR > 60.
Patient is awake alert oriented sitting out of bed in chair able to discuss diabetes care. States he has had diabetes since 2016, managed by his primary doctor. States he has a glucose monitor but has not used in in two years. Requested he ask
family to bring meter in to be sure it is working and to order correct test strips and lancets. Discussed the importance of glucose control for optimal wound healing. He states he 'WILL NOT TAKE INSULIN'. Attempted to discuss again glucose
control, advised patient metformin has been increased to 1000 mg, he states 'that will make me crash'. Again tried to reassure patient glucose would not crash as metformin is not an agent that increases insulin production.
Patient received 5 units lantus last HS, fasting glucose 228. Will increase hs lantus to 8 units. Increased metformin to 1000 mg bid first dose this AM. pre lunch glucose 252.
Discussed with nurse.
Will follow.
Diabetes History
- -
Type of Diabetes: 2
Pre-Admission Diabetes Regimen
06/18/25
06:37
Creatinine 1.2
Lab Results
Hemoglobin A1c 8.9 % (4.0-5.6) H 06/13/25 10:39
Insulin Pump Settings
IP Diabetes Regimen
06/17/25 06/17/25 06/18/25
16:43 21:28 06:37
Glucose 194 H
POC Glucose 257 H 290 H
06/18/25 06/18/25
07:42 11:47
Glucose
POC Glucose 228 H 252 H
Patient Education
--- NOTE | 2025-06-18 13:02 | W.PN.ID1 ---
Date of Service
Date of Service: June 18, 2025
Today's Communication
Continue cefazolin.
Assessment / Plan
# Severe purulent cellulitis and abscesses right foot
Recent trauma to foot - hit against ladder through work boot.
# Fever resolved
# Leukocytosis - resolved
# DM
-Bcx neg to date
- CT no osteo/abscess
- 06/15 Podiatry bedside I+D 10cc pus.
cx: MSSA
- 06/16 s/p OR washout
OR cx: MSSA
- Another I+D Monday, per Podiatry
- Continue cefazolin [id number] (d5).
Chief Complaint
-: Cellulitis
Subjective / Review of Systems
Some foot discomfort.
Vital Signs / Physical Exam
Vital Signs
Vital Signs
Temp Pulse Resp BP Pulse Ox
98.5 F 92 17 152/95 96
06/18/25 07:00 06/18/25 08:15 06/18/25 07:00 06/18/25 08:15 06/18/25 07:00
Physical Exam
Constitutional: No Acute Distress
Cardiovascular: Regular Rate and S1/S2
Pulmonary: Clear
Gastrointestinal: Soft, Non Tender and Non Distended
Genito-Urinary: Negative CVA Tenderness
Extremities: Edema (Right foot edema decreasing. )
Wound: Other (Right foot dressing dry.)
Neurological: AO x 3
Objective Data
Lab Data
Lab Results
06/18/25 06:37
06/18/25 06:37
ESR Cancelled 06/15/25 09:30
Estimated Creat Clear > 125 ml/min 06/18/25 06:37
Lactic Acid Cancelled 06/13/25 15:30
Total Bilirubin 1.3 mg/dl (0.2-1.3) 06/13/25 10:39
AST 23 U/L (17-59) 06/13/25 10:39
ALT 27 U/L (0-50) 06/13/25 10:39
Alkaline Phosphatase 104 U/L (38-126) 06/13/25 10:39
C-Reactive Protein > 270.00 mg/L (0.0-10.00) H 06/15/25 07:45
Most recent labs reviewed.
Micro Results:
06/13/25 11:51 Blood Culture - Final
Blood/Venous No Growth - Final Report
06/13/25 11:51 Blood Culture - Final
Blood/Venous No Growth - Final Report
06/16/25 15:48 Anaerobic Culture - Preliminary
Foot - Right Culture pending. Anaerobic cultures are examined after 3
days incubation. Additional information to follow.
06/16/25 15:48 Wound Culture - Preliminary
Foot - Right S aureus-Methicillin Sensitive
Gram Stain - Preliminary
06/15/25 15:12 Wound Culture - Final
Foot - Right S aureus-Methicillin Sensitive
Gram Stain - Final
06/13/25 11:53 Wound Culture - Final
Boil Gram Stain - Final
06/13/25 CT RLE: There is soft tissue inflammation but no evidence of osteomyelitis, fracture or abscess
[2025-06-18 15:00] VITALS: BP 149/81
[2025-06-18] MEDS: DILAUDID 8 MG PO (16:12)
[2025-06-18 17:12] LABS: Glucose - Point of Care 215 mg/dl (70-99)
[2025-06-18] MEDS: ZYLOPRIM 300 MG PO (18:28)
[2025-06-18] MEDS: NORVASC 10 MG PO (18:28)
[2025-06-18] MEDS: CYMBALTA DELAYED RELEASE 30 MG PO (18:28)
[2025-06-18] MEDS: FARXIGA 10 MG PO (18:29)
[2025-06-18] MEDS: LOVENOX 40 MG SC (18:29)
[2025-06-18 18:35] LABS: Glucose - Point of Care 207 mg/dl (70-99)
[2025-06-18 21:57] LABS: Glucose - Point of Care 269 mg/dl (70-99)
[2025-06-18] MEDS: FLUSH (NSS) 2 FLUSH IV ×2 (22:24→22:37)
[2025-06-18 23:31] VITALS: BP 151/83
[2025-06-19] MEDS: FLUSH (NSS) 2 FLUSH IV (05:58)
[2025-06-19] MEDS: ANCEF 10 IV ×3 (05:58→21:20)
[2025-06-19] MEDS: DILAUDID 1 MG IV ×4 (06:04→21:22)
[2025-06-19 07:23] LABS: Hematocrit 41.3 % (39.0-52.0); Hemoglobin 13.7 g/dL (13.0-18.0); Mean Corp Hgb Conc. 33.2 g/dL (33.0-37.0); Mean Corpuscular Volume 88.8 fL (80.0-94.0); Platelet Count 366 10^3/uL (130-400); Red Cell Dist. Width 13.2 % (11.5-14.5)
[2025-06-19 07:26] VITALS: BP 165/93
--- NOTE | 2025-06-19 07:31 | PN.DE.MGMTRT ---
Insulin Management
- -
06/19/2025 Diabetes Management Consult Follow up
Patient admitted 06/13 with worsening R foot pain and redness - I & D R foot. Glucose 395 on admission. PMH HTN, diabetes, obesity, gout. Prior to admission was taking metformin 500 mg BID, farxiga 10 mg daily. A1C 8.9%, cr 1.2, eGFR > 60.
Patient is awake alert oriented sitting out of bed in chair able to discuss diabetes care. States he has had diabetes since 2016, managed by his primary doctor. States he has a glucose monitor but has not used in in two years. Requested he ask
family to bring meter in to be sure it is working and to order correct test strips and lancets. Discussed the importance of glucose control for optimal wound healing. He states he 'WILL NOT TAKE INSULIN'. Attempted to discuss again glucose
control, advised patient metformin has been increased to 1000 mg, he states 'that will make me crash'. Again tried to reassure patient glucose would not crash as metformin is not an agent that increases insulin production.
Patient has refused all insulin, AC and HS. Glucose range 207 to 269. Will again discuss glucose control and need for insulin. Will continue metformin to 1000 mg bid and Farxiga 10 mg daily.
Discussed with nurse.
Will follow.
Diabetes History
- -
Type of Diabetes: 2
Pre-Admission Diabetes Regimen
Lab Results
Hemoglobin A1c 8.9 % (4.0-5.6) H 06/13/25 10:39
Insulin Pump Settings
IP Diabetes Regimen
06/18/25 06/18/25 06/18/25
07:42 11:47 17:11
POC Glucose 228 H 252 H 215 H
06/18/25 06/18/25
18:34 21:53
POC Glucose 207 H 269 H
Patient Education
[2025-06-19 07:44] LABS: Blood Urea Nitrogen 21 mg/dl (9-20); Calcium 8.8 mg/dl (8.4-10.2); Carbon Dioxide 27 mmol/L (22-30); Chloride 101 mmol/L (98-107); Estimated Creatinine Clearance > 125 ml/min; Glucose 200 mg/dl (70-99); Potassium 4.7 mmol/L (3.5-5.1); Sodium 135 mmol/L (135-145); eGFR > 60.00
[2025-06-19 08:31] LABS: Glucose - Point of Care 197 mg/dl (70-99)
[2025-06-19] MEDS: TYLENOL 1000 MG PO ×3 (08:32→21:19)
[2025-06-19] MEDS: SENOKOT-S PO ×2 (08:33→21:05)
[2025-06-19] MEDS: CATAPRES 0.1 MG PO ×3 (08:33→21:30)
--- NOTE | 2025-06-19 08:35 | W.PN.POD ---
Today's Communication
Today's Communication
Right foot wound s/p I&D abscess
Assessment / Plan
-
Assessment:
S/P I&D right foot abscess/infected hematoma - POD #3
Type 2 Diabetes Mellitus
Plan:
The site was flushed and repacked today, skin protectant and xeroform applied to the wound periphery. We discussed the repeat debridement tomorrow with possible integra graft and/or possible wound vac given the soft tissue defect once cellulitis
resolves. Surgical consent was reviewed and discussed. Discussed risks, benefits and complications of surgery. npo after midnight - on OR schedule for tomorrow afternoon. Deep wound cultures positive for MSSA continue IV antibiotics - cefazolin
[id number].
Subjective
Chief Complaint
Right foot abscess - S/P I&D
Subjective
Patient resting comfortably. Relates right foot pain, improving each day until dressing changes
Objective
Temp Pulse Resp BP Pulse Ox
98.4 F 82 17 165/93 98
06/19/25 07:26 06/19/25 07:26 06/19/25 07:26 06/19/25 07:26 06/19/25 07:26
06/19/25 06:46
06/19/25 06:46
Vital Signs and Lab results were reviewed.
Physical Exam
Physical Exam
Palpable pulses, foot is perfused. Digital ROM is intact. Digits are responsive to light touch. No pain or erythema on the plantar foot. No fullness or ecchymosis in the plantar vault. No sensitivity to touch on the plantar foot, he can
perceive light touch. Dorsal foot has edema with blanchable erythema, but improving from admission. Surgical site with packing in place. There is a 4 cm x 6 cm soft tissue defect just proximal to the lesser digits at the nidus of infection and
the original impact of the ladder. Base of wound appears viable- fibrogranular with deep fascial tissue exposed. No bone or tendon exposed. There is no purulence expressed today with compression. There is dark ecchymosis around the periphery of
the wound that appears more demarcated and dry today. Foot overall is less tense and less tender to light touch today. The erythema is receding at the level of the ankle and is more focal to the dorsolateral foot surrounding the wound and
dorsolateral foot.
[2025-06-19] MEDS: GLUCOPHAGE 1000 MG PO ×2 (08:36→18:08)
--- NOTE | 2025-06-19 11:02 | W.PN.HOSP.TC ---
Today's Communication/Plan
-
see AP
Assessment / Plan
Assessment / Plan
HPI: 39-year-old male with past medical history of hypertension, diabetes, obesity, gout; who presented with worsening right foot pain, swelling, and erythema. 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 He was seen
by his Workmen's Comp. doctor, x-ray was negative. He was given a walking boot and pain meds. He returned to his Workmen's Comp. doctor due to worsening pain, and his doctor sent him to the ER.
A/P:
# Sepsis POA 2/2 Right foot cellulitis, infected hematoma
# Right foot traumatic injury
Right lower extremity CT negative for osteomyelitis or fracture, showed severe edema
Podiatry on board, s/p Bedside I&D and purulence was expressed.
s/p OR washout and deep wound culture sampling 06/16
Plan for repeat debridement on Wednesday 06/20 with possible integra graft and/or possible wound vac
deep wound culture growing MSSA , Abx deescalated to cefazolin.
# Elevated creatinine
SCr 1.2 today
resumed home metformin,
discontinued Toradol
# Uncontrolled type 2 diabetes
Patient reports that he becomes hyperglycemic due to stress and pain, but has a history of BS dropping to the 40s with insulin
Continue treating pain, cont diabetic diet, sliding scale insulin
resumed home metformin , Farxiga
Added Lantus adjusted to 8 units HS
DM INFORMATICS SPEC on board
# Hyperkalemia
Hold home valsartan
Resolved
# Essential hypertension
Hold home valsartan due to hyperkalemia
Continue amlodipine 10 mg every afternoon
Started clonidine 0.1 mg 3 times daily
# Chronic back pain
# History of lumbar fractures
Has spinal stimulator
# Obesity due to excess calories
Affects all aspects of care
DVT prophylaxis�subcu Lovenox
Full code
Dispo: PT recc HH
DW pt's grandfather at bedside
Anticipated Discharge: > 48 hours
Subjective/Interval History
-
Date of Service: June 19, 2025
Objective Data
-
Labs:
Laboratory Results
06/19/25
06:46
WBC 11.1 H
Hgb 13.7
Hct 41.3
Plt Count 366
Sodium 135
Potassium 4.7
Chloride 101
Carbon Dioxide 27
BUN 21 H
Creatinine 1.1
Glucose 200 H
Calcium 8.8
Vital Signs:
Vital Signs
Temp Pulse Resp BP Pulse Ox
36.9 C 82 17 165/93 98
06/19/25 07:26 06/19/25 07:26 06/19/25 07:26 06/19/25 07:26 06/19/25 07:26
I&O
06/18/25 06/19/25 06/20/25
06:59 06:59 06:59
Intake Total 1000 / 1000 4220 / 4220
Output Total 4700 / 4700
Balance 1000 / 1000 -480 / -480
Review of Systems
-
History Source: Patient
All other systems: Reviewed and negative
Physical Exam
-
General: Well Developed, Well Nourished, No Apparent Distress, Comfortable, Conversant and Obese; Negative Respiratory Distress
HEENT: Normocephalic, Atraumatic, Nose Appears Normal and Ears Appear Normal; Negative Oxygen
Respiratory: Clear to Auscultation and Non Labored Respirations; Negative Accessory Resp Muscle Use
Cardiac: Regular Rhythm and S1/S2
GI: Soft, Nontender, Nondistended and Normal Bowel Sounds
Skin: Warm, Dry and Other (see wound care note)
Neuro: Awake, Alert and Oriented
Psych: Calm and Intact Judgement/Insight
Data Reviewed
-
CT Scan: Report Reviewed by me
Labs: Labs Reviewed by me
--- NOTE | 2025-06-19 12:49 | CM ---
Patient seen at bedside
continues IV abx
seen by podiatry per note discussed the repeat debridement tomorrow with possible integra graft and/or possible wound vac.
NPO after midnight
PLAN: OR tomorrow, CM to follow for needs
--- NOTE | 2025-06-19 14:13 | W.PN.ID1 ---
Date of Service
Date of Service: June 19, 2025
Today's Communication
- Another I+D Monday, per Podiatry
- Continue cefazolin [id number] (d7).
Assessment / Plan
# Severe purulent cellulitis and abscesses right foot
Recent trauma to foot - hit against ladder through work boot.
# Fever resolved
# Leukocytosis - resolved
# DM
-Bcx neg to date
- CT no osteo/abscess
- 06/15 Podiatry bedside I+D 10cc pus.
cx: MSSA
- 06/16 s/p OR washout
OR cx: MSSA
- Another I+D Monday, per Podiatry
- Continue cefazolin 8nHKv5r (d7).
Chief Complaint
-: Cellulitis
Subjective / Review of Systems
afebrile
bp stable
no events overnight
Vital Signs / Physical Exam
Vital Signs
Vital Signs
Temp Pulse Resp BP Pulse Ox
98.4 F 82 17 165/93 98
06/19/25 07:26 06/19/25 07:26 06/19/25 07:26 06/19/25 07:26 06/19/25 07:26
Physical Exam
Constitutional: No Acute Distress
Cardiovascular: Regular Rate and S1/S2; Negative Murmur or Rub
Pulmonary: Clear and Symmetric; Negative Wheezes or Rales
Gastrointestinal: Soft, Non Tender, Non Distended and Normal Bowel Sounds
Skin: Warm and Dry; Negative Rash or Jaundice
Wound: Other (deferred dressing take down)
Objective Data
Lab Data
Lab Results
06/19/25 06:46
06/19/25 06:46
ESR Cancelled 06/15/25 09:30
Estimated Creat Clear > 125 ml/min 06/19/25 06:46
Lactic Acid Cancelled 06/13/25 15:30
Total Bilirubin 1.3 mg/dl (0.2-1.3) 06/13/25 10:39
AST 23 U/L (17-59) 06/13/25 10:39
ALT 27 U/L (0-50) 06/13/25 10:39
Alkaline Phosphatase 104 U/L (38-126) 06/13/25 10:39
C-Reactive Protein > 270.00 mg/L (0.0-10.00) H 06/15/25 07:45
Most recent labs reviewed.
Micro Results:
06/19/25 13:23 C. difficile GDH Antigen & Toxins - Pending
Feces/Stool - Pending
06/16/25 15:48 Anaerobic Culture - Preliminary
Foot - Right NO ANAEROBES ISOLATED
06/16/25 15:48 Wound Culture - Preliminary
Foot - Right S aureus-Methicillin Sensitive
Gram Stain - Preliminary
06/13/25 11:51 Blood Culture - Final
Blood/Venous No Growth - Final Report
06/13/25 11:51 Blood Culture - Final
Blood/Venous No Growth - Final Report
06/15/25 15:12 Wound Culture - Final
Foot - Right S aureus-Methicillin Sensitive
Gram Stain - Final
06/13/25 11:53 Wound Culture - Final
Boil Gram Stain - Final
06/13/25 CT RLE: There is soft tissue inflammation but no evidence of osteomyelitis, fracture or abscess
[2025-06-19 14:37] LABS: Glucose - Point of Care 159 mg/dl (70-99)
[2025-06-19 14:57] VITALS: BP 140/88
[2025-06-19] MEDS: NORVASC 10 MG PO (18:08)
[2025-06-19] MEDS: FARXIGA 10 MG PO (18:08)
[2025-06-19] MEDS: CYMBALTA DELAYED RELEASE 30 MG PO (18:08)
[2025-06-19] MEDS: ZYLOPRIM 300 MG PO (18:08)
[2025-06-19 18:09] LABS: Glucose - Point of Care 209 mg/dl (70-99)
[2025-06-19] MEDS: LOVENOX 40 MG SC (18:11)
[2025-06-19 21:08] LABS: Glucose - Point of Care 167 mg/dl (70-99)
[2025-06-19 23:01] VITALS: BP 141/95
[2025-06-20] VITALS (7 sets, daily range): BP systolic 147–174; BP diastolic 80–100
[2025-06-20] MEDS: DILAUDID 1 MG IV ×6 (00:23→23:11)
[2025-06-20 04:28] LABS: Glucose - Point of Care 138 mg/dl (70-99)
[2025-06-20] MEDS: ANCEF 10 IV ×3 (06:07→22:16)
--- NOTE | 2025-06-20 07:25 | PN.DE.MGMTRT ---
Insulin Management
- -
06/20/2025: Diabetes Management Follow up
39 year old male admitted on 06/13 with worsening R foot pain and redness - I & D R foot.
PMH: HTN, T2DM, Obesity, Gout. Glucose 395 on admission. Prior to admission was taking metformin 500 mg BID, Farxiga 10 mg daily. States he has had diabetes since 2016, managed by his primary care doctor. States he has a glucose monitor but has not
used in in two years. Requested he ask family to bring meter in to be sure it is working and to order correct test strips and lancets. A1C 8.9%, cr 1.2, eGFR > 60.
Patient is awake alert oriented sitting out of bed in chair able to discuss diabetes care.
He refused his Lantus dose of 5 units last night. Discussed the importance of glucose control for optimal wound healing. He states he 'WILL NOT TAKE INSULIN'. Attempted to discuss again glucose control, advised patient metformin has been
increased to 1000 mg, he states 'that will make me crash'. Again tried to reassure patient glucose would not crash as metformin is not an agent that increases insulin production.
Patient has refused all insulin, AC and HS. Glucose range yesterday 159 to 209, Fasting 147 V, 138 POC this AM.
Will continue Metformin to 1000 mg BID and Farxiga 10 mg daily.
Discussed with nurse. Will cont to follow.
Diabetes History
- -
Type of Diabetes: 2
Pre-Admission Diabetes Regimen
06/19/25
06:46
Creatinine 1.1
Lab Results
Hemoglobin A1c 8.9 % (4.0-5.6) H 06/13/25 10:39
Insulin Pump Settings
IP Diabetes Regimen
06/19/25 06/19/25 06/19/25
06:46 08:30 14:35
Glucose 200 H
POC Glucose 197 H 159 H
06/19/25 06/19/25 06/20/25
18:07 21:07 04:27
Glucose
POC Glucose 209 H 167 H 138 H
Meal type: Lunch
Meal type: Breakfast
Amount consumed: 100%
Amount consumed: 100%
Patient Education
[2025-06-20 07:34] LABS: Hematocrit 39.9 % (39.0-52.0); Hemoglobin 13.2 g/dL (13.0-18.0); Mean Corp Hgb Conc. 33.1 g/dL (33.0-37.0); Mean Corpuscular Volume 87.3 fL (80.0-94.0); Platelet Count 346 10^3/uL (130-400); Red Cell Dist. Width 13.2 % (11.5-14.5)
[2025-06-20] MEDS: GLUCOPHAGE PO (07:58)
[2025-06-20] MEDS: CATAPRES PO (07:58)
[2025-06-20] MEDS: TYLENOL PO ×2 (07:59→17:33)
[2025-06-20] MEDS: SENOKOT-S PO ×2 (07:59→19:48)
[2025-06-20 08:31] LABS: Blood Urea Nitrogen 19 mg/dl (9-20); Calcium 8.9 mg/dl (8.4-10.2); Carbon Dioxide 28 mmol/L (22-30); Chloride 103 mmol/L (98-107); Estimated Creatinine Clearance > 125 ml/min; Glucose 147 mg/dl (70-99); Potassium 4.8 mmol/L (3.5-5.1); Sodium 137 mmol/L (135-145); eGFR > 60.00
--- NOTE | 2025-06-20 11:07 | W.PN.HOSP.TC ---
Today's Communication/Plan
-
see A/P
Assessment / Plan
Assessment / Plan
HPI: 39-year-old male with past medical history of hypertension, diabetes, obesity, gout; who presented with worsening right foot pain, swelling, and erythema. 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 He was seen
by his Workmen's Comp. doctor, x-ray was negative. He was given a walking boot and pain meds. He returned to his Workmen's Comp. doctor due to worsening pain, and his doctor sent him to the ER.
A/P:
# Sepsis POA 2/2 Right foot cellulitis, infected hematoma
# Right foot traumatic injury
Right lower extremity CT negative for osteomyelitis or fracture, showed severe edema
Podiatry on board, s/p Bedside I&D and purulence was expressed.
s/p OR washout and deep wound culture sampling 06/16
deep wound culture growing MSSA , Abx deescalated to cefazolin.
Plan for repeat debridement on Wednesday 06/20 with possible integra graft and/or possible wound vac
# Elevated creatinine
SCr 1.1 today
resumed home metformin,
discontinued Toradol
# Uncontrolled type 2 diabetes
Patient reports that he becomes hyperglycemic due to stress and pain, but has a history of BS dropping to the 40s with insulin
Continue treating pain, cont diabetic diet, sliding scale insulin
resumed home metformin , Farxiga
Added Lantus adjusted to 8 units HS
DM CONSTRUCTION ESTIMATOR on board
# Hyperkalemia
Hold home valsartan
Resolved
# Essential hypertension
Hold home valsartan due to hyperkalemia
Continue amlodipine 10 mg every afternoon
Started clonidine 0.1 mg 3 times daily
IV hydralazine while NPO
# Chronic back pain
# History of lumbar fractures
Has spinal stimulator
# Obesity due to excess calories
Affects all aspects of care
DVT prophylaxis�subcu Lovenox
Full code
DW at bedside
Anticipated Discharge: > 48 hours
Subjective/Interval History
-
Date of Service: June 20, 2025
Objective Data
-
Labs:
Laboratory Results
06/20/25
06:55
WBC 13.1 H
Hgb 13.2
Hct 39.9
Plt Count 346
Sodium 137
Potassium 4.8
Chloride 103
Carbon Dioxide 28
BUN 19
Creatinine 1.1
Glucose 147 H
Calcium 8.9
Vital Signs:
Vital Signs
Temp Pulse Resp BP Pulse Ox
36.9 C 81 16 147/80 95
06/20/25 07:00 06/20/25 07:00 06/20/25 07:00 06/20/25 07:00 06/20/25 08:34
I&O
06/19/25 06/20/25 06/21/25
06:59 06:59 06:59
Intake Total 4220 / 4220 1200 / 1200
Output Total 4700 / 4700 1350 / 1350
Balance -480 / -480 -150 / -150
Review of Systems
-
History Source: Patient
All other systems: Reviewed and negative
Physical Exam
-
General: Well Developed, Well Nourished, No Apparent Distress, Comfortable, Conversant and Obese; Negative Respiratory Distress
HEENT: Normocephalic, Atraumatic, Nose Appears Normal and Ears Appear Normal; Negative Oxygen
Respiratory: Clear to Auscultation and Non Labored Respirations; Negative Accessory Resp Muscle Use
Cardiac: Regular Rhythm and S1/S2
GI: Soft, Nontender, Nondistended and Normal Bowel Sounds
Skin: Warm, Dry and Other (see wound care note)
Neuro: Awake, Alert and Oriented
Psych: Calm and Intact Judgement/Insight
Data Reviewed
-
CT Scan: Report Reviewed by me
Labs: Labs Reviewed by me
[2025-06-20] MEDS: APRESOLINE 10 MG IV (11:29)
[2025-06-20 11:38] LABS: Glucose - Point of Care 148 mg/dl (70-99)
--- NOTE | 2025-06-20 11:45 | CM ---
Addendum entered by Kandi Vallejo 06/20/25 13:31:
I received a call from Nieves Sexton [phone] who is the lining caser from [employer] and she requested information regarding patient.
She requested she be called when patient is ready for discharge for dc planning - she would need discharge summary instructions and orders
Information at [employer] can be faxed to [phone]
Original Note:
Patient seen at bedside with Theresa
OR today - with possible integra graft and/or possible wound vac
PLAN: OR today, anticipate VN needs, CM to continue to follow post-op
--- NOTE | 2025-06-20 12:09 | W.PN.ID1 ---
Date of Service
Date of Service: June 20, 2025
Today's Communication
- Continue cefazolin 9mLDu4x (d8); tomorrow transition to keflex 500 mg PO QID for another 6 days.
Assessment / Plan
# Severe purulent cellulitis and abscesses right foot
Recent trauma to foot - hit against ladder through work boot.
# Fever resolved
# Leukocytosis - resolved
# DM
-Bcx neg to date
- CT no osteo/abscess
- 06/15 Podiatry bedside I+D 10cc pus.
cx: MSSA
- 06/16 s/p OR washout
OR cx: MSSA
- Another I+D Monday, per Podiatry
- Continue cefazolin [id number] (d8); tomorrow transition to keflex 500 mg PO QID for another 6 days.
Chief Complaint
-: Cellulitis
Subjective / Review of Systems
afebrile
bp stable
no events overnight
pending the OR
Vital Signs / Physical Exam
Vital Signs
Vital Signs
Temp Pulse Resp BP Pulse Ox
98.4 F 94 18 174/100 96
06/20/25 11:00 06/20/25 11:29 06/20/25 11:00 06/20/25 11:29 06/20/25 11:00
Physical Exam
Constitutional: No Acute Distress
Cardiovascular: Regular Rate and S1/S2; Negative Murmur or Rub
Pulmonary: Clear and Symmetric; Negative Wheezes or Rales
Gastrointestinal: Soft, Non Tender, Non Distended and Normal Bowel Sounds
Skin: Warm and Dry; Negative Rash or Jaundice
Wound: Other (deferred dressing take down)
Objective Data
Lab Data
Lab Results
06/20/25 06:55
06/20/25 06:55
ESR Cancelled 06/15/25 09:30
Estimated Creat Clear > 125 ml/min 06/20/25 06:55
Lactic Acid Cancelled 06/13/25 15:30
Total Bilirubin 1.3 mg/dl (0.2-1.3) 06/13/25 10:39
AST 23 U/L (17-59) 06/13/25 10:39
ALT 27 U/L (0-50) 06/13/25 10:39
Alkaline Phosphatase 104 U/L (38-126) 06/13/25 10:39
C-Reactive Protein > 270.00 mg/L (0.0-10.00) H 06/15/25 07:45
Most recent labs reviewed.
Micro Results:
06/19/25 13:23 C. difficile GDH Antigen & Toxins - Final
Feces/Stool Negative for toxigenic C.difficile
- Final
Negative for Norovirus GI and GII.
06/16/25 15:48 Anaerobic Culture - Preliminary
Foot - Right NO ANAEROBES ISOLATED
06/16/25 15:48 Wound Culture - Preliminary
Foot - Right S aureus-Methicillin Sensitive
Gram Stain - Preliminary
06/13/25 11:51 Blood Culture - Final
Blood/Venous No Growth - Final Report
06/13/25 11:51 Blood Culture - Final
Blood/Venous No Growth - Final Report
06/15/25 15:12 Wound Culture - Final
Foot - Right S aureus-Methicillin Sensitive
Gram Stain - Final
06/13/25 11:53 Wound Culture - Final
Boil Gram Stain - Final
06/13/25 CT RLE: There is soft tissue inflammation but no evidence of osteomyelitis, fracture or abscess
--- NOTE | 2025-06-20 15:44 | W.PN.POD ---
Today's Communication
Today's Communication
Right foot wound
Assessment / Plan
-
Assessment:
S/P I&D right foot abscess/infected hematoma - POD #4
Type 2 Diabetes Mellitus
Plan:
We discussed the repeat debridement today with possible integra graft and/or possible wound vac given the soft tissue defect once cellulitis resolves. Surgical consent was reviewed and discussed. Discussed risks, benefits and complications of
surgery. continue IV antibiotics - cefazolin [id number].
Subjective
Chief Complaint
S/P I&d right foot abscess
Subjective
Patient evaluated at bedside
Objective
Temp Pulse Resp BP Pulse Ox
98.4 F 84 18 165/94 96
06/20/25 11:00 06/20/25 14:49 06/20/25 11:00 06/20/25 14:49 06/20/25 11:00
06/20/25 06:55
06/20/25 06:55
Vital Signs and Lab results were reviewed.
Physical Exam
Physical Exam
Right foot bandages in place with some strikethrough. Digital ROM intact with sensation to light touch intact
[2025-06-20 17:27] LABS: Glucose - Point of Care 130 mg/dl (70-99)
[2025-06-20] MEDS: DILAUDID 0.5 MG IV (17:40)
[2025-06-20] MEDS: GLUCOPHAGE 1000 MG PO (18:13)
[2025-06-20] MEDS: NORVASC 10 MG PO (18:13)
[2025-06-20] MEDS: CATAPRES 0.1 MG PO ×2 (18:13→22:23)
[2025-06-20] MEDS: CYMBALTA DELAYED RELEASE 30 MG PO (18:13)
[2025-06-20] MEDS: FARXIGA 10 MG PO (18:13)
[2025-06-20] MEDS: ZYLOPRIM 300 MG PO (18:13)
[2025-06-20] MEDS: LOVENOX 40 MG SC (18:14)
[2025-06-20] MEDS: DILAUDID 8 MG PO ×2 (18:19→22:21)
[2025-06-20] MEDS: TYLENOL 1000 MG PO (22:17)
[2025-06-21 00:17] LABS: Glucose - Point of Care 161 mg/dl (70-99)
[2025-06-21 00:28] VITALS: BP 150/91
[2025-06-21] MEDS: DILAUDID 1 MG IV ×5 (02:11→20:11)
[2025-06-21] MEDS: ANCEF 10 IV ×3 (05:37→21:56)
[2025-06-21 07:00] VITALS: BP 157/93
--- NOTE | 2025-06-21 07:36 | W.PN.POD ---
Today's Communication
Today's Communication
Right foot wound - S/P I&D
Assessment / Plan
-
Assessment:
S/P repeat right foot wound debridement - POD #1
Type 2 Diabetes Mellitus
Plan:
His right foot dressings were changed today. The packing was removed from the wound and it was flushed. Xeroform was applied to the exposed tendons and a silver alginate was applied to the base of the wound. Compression dressing and elevate leg at
rest. Plan for integra graft and vac on Monday. Continue IV antibiotics - cefazolin [id number].
Subjective
Chief Complaint
Right foot wound - S/P I&D
Subjective
Patient resting comfortably. Relates tolerable pain at rest but pain during dressing changes
Objective
Temp Pulse Resp BP Pulse Ox
98.3 F 92 18 150/91 99
06/21/25 00:28 06/21/25 00:28 06/21/25 00:28 06/21/25 00:28 06/21/25 00:28
Vital Signs and Lab results were reviewed.
Physical Exam
Physical Exam
Palpable pulses, foot is perfused. Digital ROM is intact. Digits are responsive to light touch. No pain or erythema on the plantar foot. No fullness or ecchymosis in the plantar vault. Dorsal foot has much less edema and blanchable erythema
that is significantly improved, skin tension lines are present. Surgical site with packing in place. There is a greater than 6 cm soft tissue defect just proximal to the lesser digits at the nidus of infection and the original impact of the
ladder. Base of wound appears viable and granular with deep fascial tissue and tendon exposed. There is no purulence expressed today with compression. The wound edges are viable.
[2025-06-21] MEDS: DILAUDID 8 MG PO ×3 (07:43→17:47)
[2025-06-21] MEDS: CATAPRES 0.1 MG PO ×3 (07:48→21:57)
[2025-06-21] MEDS: GLUCOPHAGE 1000 MG PO ×2 (07:48→17:48)
[2025-06-21] MEDS: TYLENOL 1000 MG PO ×2 (07:48→15:55)
[2025-06-21 08:07] LABS: Glucose - Point of Care 188 mg/dl (70-99)
[2025-06-21 08:35] LABS: Blood Urea Nitrogen 21 mg/dl (9-20); Calcium 9.1 mg/dl (8.4-10.2); Carbon Dioxide 25 mmol/L (22-30); Chloride 103 mmol/L (98-107); Estimated Creatinine Clearance > 125 ml/min; Glucose 183 mg/dl (70-99); Potassium 4.7 mmol/L (3.5-5.1); Sodium 135 mmol/L (135-145); eGFR > 60.00
[2025-06-21 08:37] LABS: Hematocrit 40.1 % (39.0-52.0); Hemoglobin 13.5 g/dL (13.0-18.0); Mean Corp Hgb Conc. 33.7 g/dL (33.0-37.0); Mean Corpuscular Volume 87.4 fL (80.0-94.0); Platelet Count 370 10^3/uL (130-400); Red Cell Dist. Width 13.6 % (11.5-14.5)
[2025-06-21] MEDS: SENOKOT-S PO ×2 (09:35→20:10)
[2025-06-21] MEDS: FLUSH (NSS) 2 FLUSH IV ×3 (09:50→15:48)
[2025-06-21 11:32] LABS: Glucose - Point of Care 193 mg/dl (70-99)
[2025-06-21] MEDS: DESENEX/MITRAZOL/ZEASORB 1 APPLIC TOPICAL ×2 (12:32→20:09)
[2025-06-21 15:00] VITALS: BP 159/91
--- NOTE | 2025-06-21 15:01 | W.PN.ID1 ---
Date of Service
Date of Service: June 21, 2025
Today's Communication
cefazolin to continue
Assessment / Plan
# Severe purulent cellulitis and abscesses right foot
Recent trauma to foot - hit against ladder through work boot.
# Fever resolved
# Leukocytosis - resolved
# DM
-Bcx neg to date
- CT no osteo/abscess
- 06/15 Podiatry bedside I+D 10cc pus.
cx: MSSA
- 06/16 s/p OR washout
OR cx: MSSA
- Another I+D Monday, per Podiatry; for graft and wound vac monday
- Continue cefazolin [id number] (d9)
Chief Complaint
-: Cellulitis
Subjective / Review of Systems
afebrile
bp stable
leukocytosis persists
Vital Signs / Physical Exam
Vital Signs
Vital Signs
Temp Pulse Resp BP Pulse Ox
98.3 F 83 17 157/93 97
06/21/25 07:00 06/21/25 07:00 06/21/25 07:00 06/21/25 07:48 06/21/25 07:00
Physical Exam
Constitutional: No Acute Distress
Cardiovascular: Regular Rate and S1/S2; Negative Murmur or Rub
Pulmonary: Clear and Symmetric; Negative Wheezes or Rales
Gastrointestinal: Soft, Non Tender, Non Distended and Normal Bowel Sounds
Skin: Warm and Dry; Negative Rash or Jaundice
Objective Data
Lab Data
Lab Results
06/21/25 07:55
06/21/25 07:55
ESR Cancelled 06/15/25 09:30
Estimated Creat Clear > 125 ml/min 06/21/25 07:55
Lactic Acid Cancelled 06/13/25 15:30
Total Bilirubin 1.3 mg/dl (0.2-1.3) 06/13/25 10:39
AST 23 U/L (17-59) 06/13/25 10:39
ALT 27 U/L (0-50) 06/13/25 10:39
Alkaline Phosphatase 104 U/L (38-126) 06/13/25 10:39
C-Reactive Protein > 270.00 mg/L (0.0-10.00) H 06/15/25 07:45
Most recent labs reviewed.
Micro Results:
06/16/25 15:48 Wound Culture - Final
Foot - Right S aureus-Methicillin Sensitive
Gram Stain - Final
06/16/25 15:48 Anaerobic Culture - Final
Foot - Right NO ANAEROBES ISOLATED
06/19/25 13:23 C. difficile GDH Antigen & Toxins - Final
Feces/Stool Negative for toxigenic C.difficile
- Final
Negative for Norovirus GI and GII.
06/13/25 11:51 Blood Culture - Final
Blood/Venous No Growth - Final Report
06/13/25 11:51 Blood Culture - Final
Blood/Venous No Growth - Final Report
06/15/25 15:12 Wound Culture - Final
Foot - Right S aureus-Methicillin Sensitive
Gram Stain - Final
06/13/25 11:53 Wound Culture - Final
Boil Gram Stain - Final
06/13/25 CT RLE: There is soft tissue inflammation but no evidence of osteomyelitis, fracture or abscess
[2025-06-21 15:53] VITALS: BP 159/91
--- NOTE | 2025-06-21 16:07 | W.PN.HOSP.TC ---
Today's Communication/Plan
-
continue current care
Assessment / Plan
Assessment / Plan
39-year-old man with past medical history of:
essential hypertension,
diabetes,
obesity,
gout;
who presented with worsening right foot pain, swelling, and erythema. 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 He was seen by his Workmen's Comp. doctor, x-ray was negative. He was given a walking boot and pain
meds. He returned to his Workmen's Comp. doctor due to worsening pain, and his doctor sent him to the ER.
A/P:
1. Sepsis POA 2/2 Right foot cellulitis, infected hematoma complicated by Right foot traumatic injury
Right lower extremity CT negative for osteomyelitis or fracture, showed severe edema
Podiatry on board, s/p Bedside I&D and purulence was expressed.
s/p OR washout and deep wound culture sampling 06/16
deep wound culture growing MSSA , Abx deescalated to cefazolin.
Plan for wound vac on monday
2. Elevated creatinine - resolving
SCr 1.1 today
resumed home metformin,
discontinued Toradol
3. Uncontrolled type 2 diabetes
Patient reports that he becomes hyperglycemic due to stress and pain, but has a history of BS dropping to the 40s with insulin
Continue treating pain, cont diabetic diet, sliding scale insulin
resumed home metformin , Farxiga
Added Lantus adjusted to 8 units HS
DM LIFESTYLE DIRECTOR on board
4. Hyperkalemia - resolved
Hold home valsartan
5. Essential hypertension
Held home valsartan due to hyperkalemia
Continue amlodipine 10 mg every afternoon
Started clonidine 0.1 mg 3 times daily
IV hydralazine if needed while NPO
6. Chronic back pain with History of lumbar fractures
Has spinal stimulator
7. Obesity due to excess calories - BMI 39
Affects all aspects of care
Outpatient weight loss
DVT prophylaxis�subcu Lovenox
Full code
DW at bedside
Anticipated Discharge: > 48 hours
Subjective/Interval History
-
Date of Service: June 21, 2025
No new issues, some pain at wound.
Objective Data
-
Labs:
Laboratory Results
06/21/25
07:55
WBC 13.3 H
Hgb 13.5
Hct 40.1
Plt Count 370
Sodium 135
Potassium 4.7
Chloride 103
Carbon Dioxide 25
BUN 21 H
Creatinine 1.2
Glucose 183 H
Calcium 9.1
Vital Signs:
Vital Signs
Temp Pulse Resp BP Pulse Ox
98.3 F 87 18 159/91 92
06/21/25 15:00 06/21/25 15:00 06/21/25 15:00 06/21/25 15:55 06/21/25 15:00
I&O
06/20/25 06/21/25 06/22/25
06:59 06:59 06:59
Intake Total 1200 / 1200
Output Total 1350 / 1350
Balance -150 / -150
Review of Systems
-
History Source: Patient
All other systems: Reviewed and negative
Physical Exam
-
General: Well Developed, Well Nourished, No Apparent Distress and Comfortable
HEENT: Normocephalic, Atraumatic, Moist Mucous Membranes, Nose Appears Normal and Ears Appear Normal
Respiratory: Clear to Auscultation
Cardiac: Regular Rhythm and S1/S2
GI: Soft, Nontender and Nondistended
Musculoskeletal: No Clubbing, No Cyanosis and No Edema
Skin: Warm and Dry
Neuro: Awake, Alert, Oriented and AO x 3
Psych: Calm
Data Reviewed
-
Labs: Labs Reviewed by
[2025-06-21 17:40] LABS: Glucose - Point of Care 194 mg/dl (70-99)
[2025-06-21] MEDS: ZYLOPRIM 300 MG PO (17:48)
[2025-06-21] MEDS: FARXIGA 10 MG PO (17:48)
[2025-06-21] MEDS: CYMBALTA DELAYED RELEASE 30 MG PO (17:48)
[2025-06-21] MEDS: LOVENOX 40 MG SC (17:49)
[2025-06-21] MEDS: NORVASC 10 MG PO (17:49)
[2025-06-21] MEDS: OFIRMEV 100 IV (21:51)
[2025-06-21 21:54] LABS: Glucose - Point of Care 164 mg/dl (70-99)
[2025-06-21] MEDS: TYLENOL PO (22:08)
[2025-06-21 23:53] VITALS: BP 144/89
[2025-06-22] MEDS: DILAUDID 1 MG IV ×6 (02:36→23:41)
[2025-06-22] MEDS: ANCEF 10 IV ×3 (06:10→22:31)
[2025-06-22 06:45] LABS: Hematocrit 39.7 % (39.0-52.0); Hemoglobin 13.4 g/dL (13.0-18.0); Mean Corp Hgb Conc. 33.8 g/dL (33.0-37.0); Mean Corpuscular Volume 85.9 fL (80.0-94.0); Platelet Count 357 10^3/uL (130-400); Red Cell Dist. Width 13.4 % (11.5-14.5)
[2025-06-22 07:28] LABS: Blood Urea Nitrogen 19 mg/dl (9-20); Calcium 9.2 mg/dl (8.4-10.2); Carbon Dioxide 26 mmol/L (22-30); Chloride 104 mmol/L (98-107); Estimated Creatinine Clearance > 125 ml/min; Glucose 164 mg/dl (70-99); Potassium 4.9 mmol/L (3.5-5.1); Sodium 136 mmol/L (135-145); eGFR > 60.00
--- NOTE | 2025-06-22 07:52 | W.PN.POD ---
Today's Communication
Today's Communication
right foot wound - S/P I&D
Assessment / Plan
-
Assessment:
S/P repeat right foot wound debridement - POD #2
Type 2 Diabetes Mellitus
Plan:
His right foot dressings were changed today and the wound was flushed. Xeroform was applied to the exposed tendons and a silver alginate was applied to the base of the wound. Compression dressing and elevate leg at rest. Plan for integra graft
and vac on Monday. Npo after midnight. Surgical consent was reviewed and discussed. Continue IV antibiotics - cefazolin [id number].
Subjective
Chief Complaint
Right foot wound
Subjective
Patient is awake at bedside and relates good pain control overnight.
Objective
Temp Pulse Resp BP Pulse Ox
97.8 F 83 16 144/89 95
06/21/25 23:53 06/21/25 23:53 06/21/25 23:53 06/21/25 23:53 06/21/25 23:53
06/22/25 06:03
06/22/25 06:03
Vital Signs and Lab results were reviewed.
Physical Exam
Physical Exam
Palpable pulses, foot is perfused. Digital ROM is intact. Digits are responsive to light touch. No pain or erythema on the plantar foot. No fullness or ecchymosis in the plantar vault. Dorsal foot has much less edema and blanchable erythema
that is significantly improved, skin tension lines are present. Surgical site with alginate in place. There is a greater than 7.2 x 5 x 0.6 cm soft tissue defect just proximal to the lesser digits at the nidus of infection and the original impact
of the ladder. Base of wound appears viable and granular with deep fascial tissue and tendon exposed. There is no purulence expressed today with compression. The wound edges are viable. Entire foot is less tender to touch today
[2025-06-22 08:00] VITALS: BP 149/89
[2025-06-22 08:04] LABS: Glucose - Point of Care 173 mg/dl (70-99)
[2025-06-22] MEDS: CATAPRES 0.1 MG PO ×3 (08:25→22:30)
[2025-06-22] MEDS: GLUCOPHAGE 1000 MG PO ×2 (08:25→16:59)
[2025-06-22] MEDS: TYLENOL 1000 MG PO (08:25)
[2025-06-22] MEDS: SENOKOT-S PO ×2 (08:25→20:49)
[2025-06-22] MEDS: DESENEX/MITRAZOL/ZEASORB 1 APPLIC TOPICAL ×2 (08:26→20:49)
--- NOTE | 2025-06-22 11:24 | W.PN.HOSP.TC ---
Today's Communication/Plan
-
NPO after midnight
Assessment / Plan
Assessment / Plan
39-year-old man with past medical history of:
essential hypertension,
diabetes,
obesity,
gout;
who presented with worsening right foot pain, swelling, and erythema. 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 He was seen by his Workmen's Comp. doctor, x-ray was negative. He was given a walking boot and pain
meds. He returned to his Workmen's Comp. doctor due to worsening pain, and his doctor sent him to the ER.
A/P:
1. Sepsis POA 2/2 Right foot cellulitis, infected hematoma complicated by Right foot traumatic injury
Right lower extremity CT negative for osteomyelitis or fracture, showed severe edema
Podiatry on board, s/p Bedside I&D and purulence was expressed.
s/p OR washout and deep wound culture sampling 06/16
deep wound culture growing MSSA , Abx deescalated to cefazolin.
Plan for wound vac on monday
Latest podiatry recs:
'His right foot dressings were changed today and the wound was flushed.
Xeroform was applied to the exposed tendons and a silver alginate was applied to the base of the wound.
Compression dressing and elevate leg at rest.
Plan for integra graft and vac on Monday.
Npo after midnight.
Surgical consent was reviewed and discussed.
Continue IV antibiotics - cefazolin [id number].'
2. Elevated creatinine - resolving
SCr 1.1 today
resumed home metformin,
discontinued Toradol
3. Uncontrolled type 2 diabetes
Patient reports that he becomes hyperglycemic due to stress and pain, but has a history of BS dropping to the 40s with insulin
Continue treating pain, cont diabetic diet, sliding scale insulin
resumed home metformin , Farxiga
Added Lantus adjusted to 8 units HS
DM CRITICAL CARE UNIT MANAGER on board
4. Hyperkalemia - resolved
Hold home valsartan
5. Essential hypertension
Held home valsartan due to hyperkalemia
Continue amlodipine 10 mg every afternoon
Started clonidine 0.1 mg 3 times daily
IV hydralazine if needed while NPO
6. Chronic back pain with History of lumbar fractures
Has spinal stimulator
7. Obesity due to excess calories - BMI 39
Affects all aspects of care
Outpatient weight loss
DVT prophylaxis�subcu Lovenox
Full code
Anticipated Discharge: > 48 hours
Subjective/Interval History
-
Date of Service: June 22, 2025
Feels ok, no new issues.
Objective Data
-
Labs:
Laboratory Results
06/22/25
06:03
WBC 12.0 H
Hgb 13.4
Hct 39.7
Plt Count 357
Sodium 136
Potassium 4.9
Chloride 104
Carbon Dioxide 26
BUN 19
Creatinine 1.0
Glucose 164 H
Calcium 9.2
Vital Signs:
Vital Signs
Temp Pulse Resp BP Pulse Ox
97.3 F 78 20 149/89 98
06/22/25 08:00 06/22/25 08:00 06/22/25 08:00 06/22/25 08:00 06/22/25 08:00
I&O
06/21/25 06/22/25 06/23/25
06:59 06:59 06:59
Intake Total 840 / 840
Balance 840 / 840
Review of Systems
-
History Source: Patient
All other systems: Reviewed and negative
Physical Exam
-
General: Well Developed, Well Nourished, No Apparent Distress, Comfortable and Obese
HEENT: Normocephalic, Atraumatic, Moist Mucous Membranes, Nose Appears Normal and Ears Appear Normal
Respiratory: Clear to Auscultation
Cardiac: Regular Rhythm and S1/S2
GI: Soft, Nontender and Nondistended
Musculoskeletal: No Clubbing, No Cyanosis and No Edema
Skin: Warm and Dry
Neuro: Awake, Alert and Oriented
Psych: Calm
Data Reviewed
-
Labs: Labs Reviewed by me
[2025-06-22 12:00] LABS: Glucose - Point of Care 182 mg/dl (70-99)
[2025-06-22] MEDS: OFIRMEV 100 IV ×2 (15:44→22:48)
[2025-06-22] MEDS: TYLENOL PO ×2 (15:44→22:31)
[2025-06-22 16:43] VITALS: BP 169/89
[2025-06-22] MEDS: FARXIGA 10 MG PO (16:59)
[2025-06-22] MEDS: CYMBALTA DELAYED RELEASE 30 MG PO (16:59)
[2025-06-22] MEDS: NORVASC 10 MG PO (16:59)
[2025-06-22] MEDS: ZYLOPRIM 300 MG PO (16:59)
[2025-06-22] MEDS: LOVENOX 40 MG SC (17:00)
[2025-06-22 17:52] LABS: Glucose - Point of Care 148 mg/dl (70-99)
[2025-06-22 22:03] LABS: Glucose - Point of Care 146 mg/dl (70-99)
[2025-06-22 22:37] VITALS: BP 153/92
[2025-06-23] VITALS (12 sets, daily range): BP systolic 132–153; BP diastolic 77–95
[2025-06-23] MEDS: TORADOL 30 MG IV (00:26)
[2025-06-23] MEDS: DILAUDID 8 MG PO ×3 (01:08→09:17)
[2025-06-23] MEDS: DILAUDID 1 MG IV ×4 (02:41→23:30)
[2025-06-23] MEDS: ANCEF 10 IV ×3 (05:41→22:20)
[2025-06-23 05:52] LABS: Glucose - Point of Care 156 mg/dl (70-99)
[2025-06-23 07:22] LABS: Hematocrit 38.0 % (39.0-52.0); Hemoglobin 12.8 g/dL (13.0-18.0); Mean Corp Hgb Conc. 33.7 g/dL (33.0-37.0); Mean Corpuscular Volume 88.0 fL (80.0-94.0); Platelet Count 324 10^3/uL (130-400); Red Cell Dist. Width 13.2 % (11.5-14.5)
[2025-06-23 07:23] LABS: Blood Urea Nitrogen 28 mg/dl (9-20); Calcium 9.0 mg/dl (8.4-10.2); Carbon Dioxide 28 mmol/L (22-30); Chloride 104 mmol/L (98-107); Estimated Creatinine Clearance 109 ml/min; Glucose 146 mg/dl (70-99); Potassium 4.7 mmol/L (3.5-5.1); Sodium 136 mmol/L (135-145); eGFR > 60.00
--- NOTE | 2025-06-23 07:34 | PN.DE.MGMTRT ---
Insulin Management
- -
06/23/2025: Diabetes Management Follow up
39 year old male admitted on 06/13 with worsening R foot pain and redness - I & D R foot.
PMH: HTN, T2DM, Obesity, Gout. Glucose 395 on admission. Prior to admission was taking metformin 500 mg BID, Farxiga 10 mg daily. States he has had diabetes since 2016, managed by his primary care doctor. States he has a glucose monitor but has not
used in in two years. Requested he ask family to bring meter in to be sure it is working and to order correct test strips and lancets. A1C 8.9%, cr 1.2, eGFR > 60.
Patient is awake alert oriented resting in bed, able to discuss diabetes care.
Patient has refused all insulin, AC and HS. Discussed the importance of glucose control for optimal wound healing. He states he 'WILL NOT TAKE INSULIN' due to a hypoglycemic episode he experienced while here in 2017. States his blood sugar was 440
and was given 2 units of insulin and his blood sugar dropped to 40's. Of note, there is no record of a glucose level in the 40's during that hospital visit on chart review. Discussed this with pt and he remained adamant that he would not take
insulin. He is currently NPO for OR today.
Glucose range yesterday 148 to 182, Fasting 146 V, 156 POC this AM.
Will continue Metformin 1000 mg BID and Farxiga 10 mg daily.
Discussed with nurse. Will cont to follow.
Diabetes History
- -
Type of Diabetes: 2
Pre-Admission Diabetes Regimen
06/23/25
06:45
Creatinine 1.4 H
Lab Results
Hemoglobin A1c 8.9 % (4.0-5.6) H 06/13/25 10:39
Insulin Pump Settings
IP Diabetes Regimen
06/22/25 06/22/25 06/22/25
07:59 11:56 17:51
Glucose
POC Glucose 173 H 182 H 148 H
06/22/25 06/23/25 06/23/25
21:59 05:51 06:45
Glucose 146 H
POC Glucose 146 H 156 H
Patient Education
--- NOTE | 2025-06-23 08:43 | W.PN.HOSP.TC ---
Today's Communication/Plan
-
Plan for integra graft and vac today
Assessment / Plan
Assessment / Plan
39-year-old man with past medical history of:
essential hypertension,
diabetes,
obesity,
gout;
who presented with worsening right foot pain, swelling, and erythema. 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 He was seen by his Workmen's Comp. doctor, x-ray was negative. He was given a walking boot and pain
meds. He returned to his Workmen's Comp. doctor due to worsening pain, and his doctor sent him to the ER.
A/P:
1. Sepsis POA 2/ Right foot cellulitis, infected hematoma complicated by Right foot traumatic injury
Right lower extremity CT negative for osteomyelitis or fracture, showed severe edema
Podiatry & ID on board, s/p Bedside I&D and purulence was expressed 06/15
S/p OR washout and deep wound culture sampling 06/16
Deep wound culture growing MSSA , Abx deescalated to cefazolin.
Plan for integra graft wound vac today
2. Elevated creatinine
Resumed home metformin, discontinued Toradol
Trend creatinine, no nephrotoxic drugs/NSAIDs
3. Uncontrolled type 2 diabetes
Patient reports that he becomes hyperglycemic due to stress and pain, and has a history of BS dropping to the 40s with insulin
Continue treating pain, cont diabetic diet, sliding scale insulin
Resumed home metformin , Farxiga
Patient refusing insulin
DM LEAN SPECIALIST on board
4. Hyperkalemia - resolved
Hold home valsartan
5. Essential hypertension
Held home valsartan due to hyperkalemia
Continue amlodipine 10 mg every afternoon
Started clonidine 0.1 mg 3 times daily
IV hydralazine if needed while NPO
6. Chronic back pain with History of lumbar fractures
Has spinal stimulator
7. Obesity due to excess calories - BMI 39
Affects all aspects of care
Outpatient weight loss
DVT prophylaxis�subcu Lovenox
Full code
Total time spent to see the patient on the floor, examine the patient, review data and lab results, discuss treatment plan with patient, nursing staff around 40 minutes.
Physical Exam
General: Obese, no acute distress
HEENT: Normocephalic, Atraumatic, EOMI, MMM
Respiratory: Clear to Auscultation bilaterally
Cardiac: Normal S1/S2, Regular Rate and Rhythm
GI: Soft, Nontender, Nondistended, Normal Bowel Sounds
Extremities: No Clubbing, Cyanosis
Right foot dressed
Neuro: Nonfocal/Grossly Intact
Anticipated Discharge: 24 - 48 hours
Subjective/Interval History
-
Date of Service: June 23, 2025
Patient complains of severe right foot pain. Denies chest pain, denies shortness of breath. He reports having a bowel movement earlier this morning. No fever, no vomiting.
Objective Data
-
Labs:
Laboratory Results
06/23/25
06:45
WBC 10.5
Hgb 12.8 L
Hct 38.0 L
Plt Count 324
Sodium 136
Potassium 4.7
Chloride 104
Carbon Dioxide 28
BUN 28 H
Creatinine 1.4 H
Glucose 146 H
Calcium 9.0
Vital Signs:
Vital Signs
Temp Pulse Resp BP Pulse Ox
98.4 F 65 18 142/89 95
06/23/25 07:45 06/23/25 07:45 06/23/25 07:45 06/23/25 07:45 06/23/25 07:45
I&O
06/22/25 06/23/25 06/24/25
06:59 06:59 06:59
Intake Total 840 / 840 1220 / 1220
Balance 840 / 840 1220 / 1220
[2025-06-23] MEDS: SENOKOT-S 2 TABLET PO (09:11)
[2025-06-23] MEDS: CATAPRES 0.1 MG PO (09:11)
[2025-06-23] MEDS: TYLENOL 1000 MG PO (09:12)
[2025-06-23] MEDS: DESENEX/MITRAZOL/ZEASORB 1 APPLIC TOPICAL (09:19)
[2025-06-23] MEDS: GLUCOPHAGE PO ×2 (10:07→19:57)
--- NOTE | 2025-06-23 10:42 | W.PN.ID1 ---
Date of Service
Date of Service: June 23, 2025
Today's Communication
- can continue cefazolin while inpatient, day 10, on discharge transition to keflex 500 mg PO QID to complete a 14 day total course
Assessment / Plan
# Severe purulent cellulitis and abscesses right foot
Recent trauma to foot - hit against ladder through work boot.
# Fever resolved
# Leukocytosis - resolved
# DM
-Bcx neg to date
- CT no osteo/abscess
- 06/15 Podiatry bedside I+D 10cc pus.
cx: MSSA
- 06/16 s/p OR washout
OR cx: MSSA
- Another I+D Monday, per Podiatry;
- can continue cefazolin while inpatient, day 10, on discharge transition to keflex 500 mg PO QID to complete a 14 day total course
Chief Complaint
-: Cellulitis
Subjective / Review of Systems
afebrile
bp stable
tolerating current therapies
Vital Signs / Physical Exam
Vital Signs
Vital Signs
Temp Pulse Resp BP Pulse Ox
98.4 F 65 18 142/89 95
06/23/25 07:45 06/23/25 07:45 06/23/25 07:45 06/23/25 07:45 06/23/25 07:45
Physical Exam
Constitutional: No Acute Distress
Cardiovascular: Regular Rate and S1/S2; Negative Murmur or Rub
Pulmonary: Clear and Symmetric; Negative Wheezes or Rales
Gastrointestinal: Soft, Non Tender, Non Distended and Normal Bowel Sounds
Skin: Warm and Dry; Negative Rash or Jaundice
Wound: Other (dressing clean, dry, intact)
Objective Data
Lab Data
Lab Results
06/23/25 06:45
06/23/25 06:45
ESR Cancelled 06/15/25 09:30
Estimated Creat Clear 109 ml/min 06/23/25 06:45
Lactic Acid Cancelled 06/13/25 15:30
Total Bilirubin 1.3 mg/dl (0.2-1.3) 06/13/25 10:39
AST 23 U/L (17-59) 06/13/25 10:39
ALT 27 U/L (0-50) 06/13/25 10:39
Alkaline Phosphatase 104 U/L (38-126) 06/13/25 10:39
C-Reactive Protein > 270.00 mg/L (0.0-10.00) H 06/15/25 07:45
Most recent labs reviewed.
Micro Results:
06/16/25 15:48 Wound Culture - Final
Foot - Right S aureus-Methicillin Sensitive
Gram Stain - Final
06/16/25 15:48 Anaerobic Culture - Final
Foot - Right NO ANAEROBES ISOLATED
06/19/25 13:23 C. difficile GDH Antigen & Toxins - Final
Feces/Stool Negative for toxigenic C.difficile
- Final
Negative for Norovirus GI and GII.
06/13/25 11:51 Blood Culture - Final
Blood/Venous No Growth - Final Report
06/13/25 11:51 Blood Culture - Final
Blood/Venous No Growth - Final Report
06/15/25 15:12 Wound Culture - Final
Foot - Right S aureus-Methicillin Sensitive
Gram Stain - Final
06/13/25 11:53 Wound Culture - Final
Boil Gram Stain - Final
06/13/25 CT RLE: There is soft tissue inflammation but no evidence of osteomyelitis, fracture or abscess
[2025-06-23 12:11] LABS: Glucose - Point of Care 134 mg/dl (70-99)
--- NOTE | 2025-06-23 13:15 | CM ---
Patient seen at bedside
OR today
PLAN: OR today, CM to continue to follow for VN needs
--- NOTE | 2025-06-23 16:06 | W.PN.POD ---
Today's Communication
Today's Communication
right foot wound
Assessment / Plan
-
Assessment:
S/P repeat right foot wound debridement - POD #3
Type 2 Diabetes Mellitus
Plan:
To OR today for integra graft and vac - right foot. Surgical consent was reviewed and discussed. Continue IV antibiotics - cefazolin [id number], ID recommends po Keflex for discharge.
Subjective
Chief Complaint
Right foot wound - S/P I&D
Subjective
Patient seen at bedside.
Objective
Temp Pulse Resp BP Pulse Ox
98.1 F 67 18 133/83 98
06/23/25 15:25 06/23/25 15:25 06/23/25 15:25 06/23/25 15:25 06/23/25 15:25
06/23/25 06:45
06/23/25 06:45
Vital Signs and Lab results were reviewed.
Physical Exam
Physical Exam
Bandages in place right foot - no strikethrough. Digital ROM intact, sensation to light touch intact. Calves are supple non tender no pain with compression
[2025-06-23] MEDS: TYLENOL PO ×2 (16:37→22:17)
[2025-06-23 16:42] LABS: Glucose - Point of Care 124 mg/dl (70-99)
--- NOTE | 2025-06-23 17:49 | W.PN.UPDATE ---
Update Note
Progress Note Update
Patient underwent right foot wound debridement with Integra graft and VAC application. Patient may work with PT and weight bear in a surgical shoe as needed. Elevate leg at rest. Run wound vac at 125 mmHg continuous therapy. Patient will require
home wound VAC for discharge. Continue Cefazolin until discharge and Change to Keflex per ID recommendation.
[2025-06-23 17:53] LABS: Glucose - Point of Care 112 mg/dl (70-99)
[2025-06-23] MEDS: SUBLIMAZE 25 MCG IV ×2 (18:18→18:27)
[2025-06-23 19:54] LABS: Glucose - Point of Care 104 mg/dl (70-99)
[2025-06-23] MEDS: FARXIGA PO (19:58)
[2025-06-23] MEDS: CATAPRES PO ×2 (20:02→22:17)
[2025-06-23] MEDS: LOVENOX 40 MG SC (20:03)
[2025-06-23] MEDS: ZYLOPRIM PO (22:13)
[2025-06-23] MEDS: NORVASC PO (22:13)
[2025-06-23] MEDS: CYMBALTA DELAYED RELEASE PO (22:13)
[2025-06-23] MEDS: SENOKOT-S PO (22:17)
[2025-06-23 23:56] LABS: Glucose - Point of Care 134 mg/dl (70-99)
[2025-06-24 03:05] VITALS: BP 148/82
[2025-06-24] MEDS: DILAUDID 1 MG IV ×6 (03:27→23:43)
[2025-06-24] MEDS: ANCEF 10 IV ×3 (05:17→21:35)
[2025-06-24 06:51] LABS: Hematocrit 39.0 % (39.0-52.0); Hemoglobin 12.9 g/dL (13.0-18.0); Mean Corp Hgb Conc. 33.1 g/dL (33.0-37.0); Mean Corpuscular Volume 87.1 fL (80.0-94.0); Platelet Count 352 10^3/uL (130-400); Red Cell Dist. Width 13.4 % (11.5-14.5)
[2025-06-24 07:16] LABS: Blood Urea Nitrogen 22 mg/dl (9-20); Calcium 9.2 mg/dl (8.4-10.2); Carbon Dioxide 27 mmol/L (22-30); Chloride 103 mmol/L (98-107); Estimated Creatinine Clearance > 125 ml/min; Glucose 216 mg/dl (70-99); Potassium 5.2 mmol/L (3.5-5.1); Sodium 136 mmol/L (135-145); eGFR > 60.00
[2025-06-24] MEDS: DESENEX/MITRAZOL/ZEASORB TOPICAL ×2 (07:38→08:25)
[2025-06-24 08:01] VITALS: BP 141/94
[2025-06-24] MEDS: TYLENOL 1000 MG PO ×3 (08:03→21:45)
[2025-06-24] MEDS: SENOKOT-S 2 TABLET PO (08:03)
[2025-06-24] MEDS: CATAPRES 0.1 MG PO ×3 (08:04→21:45)
[2025-06-24] MEDS: GLUCOPHAGE 1000 MG PO ×2 (08:04→17:14)
[2025-06-24 08:08] LABS: Glucose - Point of Care 210 mg/dl (70-99)
--- NOTE | 2025-06-24 08:40 | PN.DE.MGMTRT ---
Insulin Management
- -
06/24/2025: Diabetes Management Follow up
39 year old male admitted on 06/13 with worsening R foot pain and redness - I & D R foot.
PMH: HTN, T2DM, Obesity, Gout. Glucose 395 on admission. Prior to admission was taking metformin 500 mg BID, Farxiga 10 mg daily. States he has had diabetes since 2016, managed by his primary care doctor. States he has a glucose monitor but has not
used in in two years. Requested he ask family to bring meter in to be sure it is working and to order correct test strips and lancets. A1C 8.9%, cr 1.2, eGFR > 60.
Patient is awake alert oriented resting in bed, able to discuss diabetes care.
Patient has refused all insulin, AC and HS. Discussed the importance of glucose control for optimal wound healing. He states he 'WILL NOT TAKE INSULIN' due to a hypoglycemic episode he experienced while here in 2017. States his blood sugar was 440
and was given 2 units of insulin and his blood sugar dropped to 40's. Of note, there is no record of a glucose level in the 40's during that hospital visit on chart review. Discussed this with pt and he remained adamant that he would not take
insulin.
Glucose range yesterday 104 to 156.
Fasting glucose 210 this AM. I did discuss with patient glucose elevations interfering with healing and possibly starting glimepiride. He states ' its only elevated because I have pain' he does not need another medication.
Will continue Metformin 1000 mg BID and Farxiga 10 mg daily.
Discussed with nurse. Will cont to follow.
Diabetes History
- -
Type of Diabetes: 2
Pre-Admission Diabetes Regimen
06/24/25
06:
Creatinine 1.2
Lab Results
Hemoglobin A1c 8.9 % (4.0-5.6) H 06/13/25 10:39
Insulin Pump Settings
IP Diabetes Regimen
06/23/25 06/23/25 06/23/25
12:10 16:40 17:52
Glucose
POC Glucose 134 H 124 H 112 H
06/23/25 06/23/25 06/24/25
19:53 23:56 06:25
Glucose 216 H
POC Glucose 104 H 134 H
06/24/25
08:07
Glucose
POC Glucose 210 H
Meal type: Dinner
Meal type: Breakfast
Amount consumed: 100%
Patient Education
--- NOTE | 2025-06-24 08:44 | CM ---
spoke with Nieves [facility] [phone] who stated that the referral for VN would need to be placed by her and sent to [employer] ([employer]rd [employer]) and she will get back to CM once referral accepted
tt WOMARY Mazariegos with Nieves phone #.
Faxed Nieves [phone] - Progress note & CM consult for VN
plan: home with VN, and home wound vac once set up by workmanefe Pickett will call CM back
--- NOTE | 2025-06-24 09:00 | WOUNDNOTE ---
WON RN NOTE: Spoke with Nieves Blevins, caser for workman's comp as requested by MARYAM Chau. PW faxed to caser as requested for insurance approval of home vac unit. Nieves states that it goes through a 3rd democrat admin. [employer].
She will request that [employer] be used for home vac so that we can use our redivac upon discharge. Updated the [employer] web site with hospital vac application. Dropped off wound vac supplies at patient's room and explained the above with
patient. Wound vac to R foot in place, suction at 125mmgh. Coordinated with Dr. Rosen, we plan on vac change tomorrow Morning around 8am together. Notified nurse Rigoberto to pass on in report to premedicate for pain prior to vac change. MARYAM Chau
given an update on the above. room worker for Workman's comp phone number is [phone]. Will touch base with Nieves later today for any updates.
--- NOTE | 2025-06-24 09:02 | W.PN.HOSP.TC ---
Today's Communication/Plan
-
see bold
Assessment / Plan
Assessment / Plan
39-year-old man with past medical history of:
essential hypertension,
diabetes,
obesity,
gout;
who presented with worsening right foot pain, swelling, and erythema. 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 He was seen by his Workmen's Comp. doctor, x-ray was negative. He was given a walking boot and pain
meds. He returned to his Workmen's Comp. doctor due to worsening pain, and his doctor sent him to the ER.
A/P:
1. Sepsis POA 2/ Right foot cellulitis, infected hematoma complicated by Right foot traumatic injury
Right lower extremity CT negative for osteomyelitis or fracture, showed severe edema
Podiatry & ID on board, s/p Bedside I&D and purulence was expressed 06/15
S/p OR washout and deep wound culture sampling 06/16
Deep wound culture growing MSSA , Abx deescalated to cefazolin
At time of discharge, transition to cephalexin 1000mg po q8h x 2 more weeks.
S/p OR integra graft wound vac 06/23
2. Elevated creatinine
Resumed home metformin, discontinued Toradol
Trend creatinine, no nephrotoxic drugs/NSAIDs
3. Uncontrolled type 2 diabetes
Patient reports that he becomes hyperglycemic due to stress and pain, and has a history of BS dropping to the 40s with insulin
Continue treating pain, cont diabetic diet, sliding scale insulin
Resumed home metformin , Farxiga
Patient refusing insulin
DM OUTSIDE MACHINIST SUPERVISOR on board
4. Hyperkalemia - resolved
Low K diet, hold home valsartan -would recommend permanently discontinuing upon discharge
5. Essential hypertension
Hold home valsartan due to hyperkalemia
Continue amlodipine 10 mg every afternoon
Started clonidine 0.1 mg 3 times daily
IV hydralazine if needed while NPO
6. Chronic back pain with History of lumbar fractures
Has spinal stimulator
7. Obesity due to excess calories - BMI 39
Affects all aspects of care
Outpatient weight loss
DVT prophylaxis�subcu Lovenox
Full code
Total time spent to see the patient on the floor, examine the patient, review data and lab results, discuss treatment plan with patient, nursing staff around 50 minutes.
Physical Exam
General: Obese, no acute distress
HEENT: Normocephalic, Atraumatic, EOMI, MMM
Respiratory: Clear to Auscultation bilaterally
Cardiac: Normal S1/S2, Regular Rate and Rhythm
GI: Soft, Nontender, Nondistended, Normal Bowel Sounds
Extremities: No Clubbing, Cyanosis
Right foot dressed
Neuro: Nonfocal/Grossly Intact
Anticipated Discharge: Within 24 hours
Subjective/Interval History
-
Date of Service: June 24, 2025
Patient complains of severe right foot pain. He reports having a bowel movement today. He is refusing insulin. Denies chest pain, denies shortness of breath. No fever, no vomiting.
Objective Data
-
Labs:
Laboratory Results
06/24/25
06:25
WBC 10.2
Hgb 12.9 L
Hct 39.0
Plt Count 352
Sodium 136
Potassium 5.2 H
Chloride 103
Carbon Dioxide 27
BUN 22 H
Creatinine 1.2
Glucose 216 H
Calcium 9.2
Vital Signs:
Vital Signs
Temp Pulse Resp BP Pulse Ox
99.0 F 76 14 141/94 93
06/24/25 08:01 06/24/25 08:01 06/24/25 08:01 06/24/25 08:01 06/24/25 03:05
I&O
06/23/25 06/24/25 06/25/25
06:59 06:59 06:59
Intake Total 1220 / 1220 680 / 680
Output Total 2900 / 2900
Balance 1220 / 1220 -0 / -2219
--- NOTE | 2025-06-24 11:22 | W.PN.ID1 ---
Date of Service
Date of Service: June 24, 2025
Today's Communication
- Continue cefazolin
- At time of discharge, transition to cephalexin 1000mg po q8h x 2 more weeks.
Assessment / Plan
# Severe purulent cellulitis and abscesses right foot
Recent trauma to foot - hit against ladder through work boot.
# Fever resolved
# Leukocytosis - resolved
# DM
-Bcx neg to date
- CT no osteo/abscess
- 06/15 Podiatry bedside I+D 10cc pus.
cx: MSSA
- 06/16 s/p OR washout
OR cx: MSSA
- 3 s/p I+D
-10/6 s/p I+D to muscle and tendon Integra graft and VAC
- Continue cefazolin
- At time of discharge, transition to cephalexin 1000mg po q8h x 2 more weeks.
Chief Complaint
-: Cellulitis
Subjective / Review of Systems
No complaints today.
Vital Signs / Physical Exam
Vital Signs
Vital Signs
Temp Pulse Resp BP Pulse Ox
99.0 F 76 14 141/94 93
06/24/25 08:01 06/24/25 08:01 06/24/25 08:01 06/24/25 08:01 06/24/25 03:05
Physical Exam
Constitutional: No Acute Distress
Cardiovascular: Regular Rate and S1/S2
Pulmonary: Clear and Symmetric
Gastrointestinal: Soft, Non Tender, Non Distended and Normal Bowel Sounds
Wound: Other (right foot with wound vac)
Neurological: AO x 3
Objective Data
Lab Data
Lab Results
06/24/25 06:25
06/24/25 06:25
ESR Cancelled 06/15/25 09:30
Estimated Creat Clear > 125 ml/min 06/24/25 06:25
Lactic Acid Cancelled 06/13/25 15:30
Total Bilirubin 1.3 mg/dl (0.2-1.3) 06/13/25 10:39
AST 23 U/L (17-59) 06/13/25 10:39
ALT 27 U/L (0-50) 06/13/25 10:39
Alkaline Phosphatase 104 U/L (38-126) 06/13/25 10:39
C-Reactive Protein > 270.00 mg/L (0.0-10.00) H 06/15/25 07:45
Most recent labs reviewed.
Micro Results:
06/16/25 15:48 Wound Culture - Final
Foot - Right S aureus-Methicillin Sensitive
Gram Stain - Final
06/16/25 15:48 Anaerobic Culture - Final
Foot - Right NO ANAEROBES ISOLATED
06/19/25 13:23 C. difficile GDH Antigen & Toxins - Final
Feces/Stool Negative for toxigenic C.difficile
- Final
Negative for Norovirus GI and GII.
06/13/25 11:51 Blood Culture - Final
Blood/Venous No Growth - Final Report
06/13/25 11:51 Blood Culture - Final
Blood/Venous No Growth - Final Report
06/15/25 15:12 Wound Culture - Final
Foot - Right S aureus-Methicillin Sensitive
Gram Stain - Final
06/13/25 11:53 Wound Culture - Final
Boil Gram Stain - Final
06/13/25 CT RLE: There is soft tissue inflammation but no evidence of osteomyelitis, fracture or abscess
[2025-06-24 12:07] LABS: Glucose - Point of Care 162 mg/dl (70-99)
--- NOTE | 2025-06-24 13:33 | W.PN.POD ---
Today's Communication
Today's Communication
S/P right foot wound debridement, integra grafting and VAC
Assessment / Plan
-
Assessment:
S/P repeat right foot wound debridement, integra grafting, and wound VAC application- POD #1
Type 2 Diabetes Mellitus
Plan:
Await home wound VAC and Home VNS to be arranged. He may Weight bear as tolerated in a surgical shoe. Plan for VAC change in morning and if home vac and VNS are arranged, he may be discharged at that point. Continue IV antibiotics - cefazolin
[id number], ID recommends po Keflex for discharge.
Subjective
Chief Complaint
S/P right foot wound debridement, integra grafting and wound VAC
Subjective
Patient is resting comfortably - relates pain controlled
Objective
Temp Pulse Resp BP Pulse Ox
99.0 F 76 14 141/94 93
06/24/25 08:01 06/24/25 08:01 06/24/25 08:01 06/24/25 08:01 06/24/25 03:05
06/24/25 06:25
06/24/25 06:25
Vital Signs and Lab results were reviewed.
Physical Exam
Physical Exam
Right foot with bandages in place, no strikethrough, VAC running at 125 mmHg, digital ROM intact and responsive to light touch.
--- NOTE | 2025-06-24 14:48 | PTCARENOTE ---
06/24/2025 DIABETES EDUCATION CONSULT
Met with patient and significant other. Provided Contour Next glucometer sample kit. Patient declined demonstration, states he knows how to check his blood sugar. Provided a verbal review. Also informed patient supplies are available at [facility]
with out a prescripion. He verbalized understanding.
[2025-06-24 15:11] VITALS: BP 147/96
[2025-06-24 16:56] LABS: Glucose - Point of Care 209 mg/dl (70-99)
[2025-06-24] MEDS: FARXIGA 10 MG PO (17:14)
[2025-06-24] MEDS: LOVENOX 40 MG SC (17:14)
[2025-06-24] MEDS: NORVASC 10 MG PO (17:14)
[2025-06-24] MEDS: CYMBALTA DELAYED RELEASE 30 MG PO (17:14)
[2025-06-24] MEDS: ZYLOPRIM 300 MG PO (17:15)
[2025-06-24] MEDS: SENOKOT-S PO (19:27)
[2025-06-24] MEDS: TYLENOL 650 MG PO (20:22)
[2025-06-24] MEDS: DESENEX/MITRAZOL/ZEASORB 1 APPLIC TOPICAL (20:50)
[2025-06-24 21:50] LABS: Glucose - Point of Care 195 mg/dl (70-99)
[2025-06-25] MEDS: ANCEF 10 IV ×2 (06:06→14:02)
[2025-06-25] MEDS: DILAUDID 1 MG IV ×3 (06:07→14:06)
[2025-06-25 07:38] LABS: Hematocrit 40.0 % (39.0-52.0); Hemoglobin 13.2 g/dL (13.0-18.0); Mean Corp Hgb Conc. 33.0 g/dL (33.0-37.0); Mean Corpuscular Volume 89.1 fL (80.0-94.0); Platelet Count 353 10^3/uL (130-400); Red Cell Dist. Width 13.5 % (11.5-14.5)
--- NOTE | 2025-06-25 07:55 | PN.DE.MGMTRT ---
Insulin Management
- -
06/25/2025: Diabetes Management Follow up
39 year old male admitted on 06/13 with worsening R foot pain and redness - I & D R foot.
PMH: HTN, T2DM, Obesity, Gout. Glucose 395 on admission. Prior to admission was taking metformin 500 mg BID, Farxiga 10 mg daily. States he has had diabetes since 2016, managed by his primary care doctor. States he has a glucose monitor but has not
used in in two years. Requested he ask family to bring meter in to be sure it is working and to order correct test strips and lancets. Meter has not been brought in. New meter provided. A1C 8.9%, cr 1.2, eGFR > 60.
Patient is awake alert oriented resting in bed, able to discuss diabetes care.
Patient has refused all insulin, AC and HS. Discussed the importance of glucose control for optimal wound healing. He states he 'WILL NOT TAKE INSULIN' due to a hypoglycemic episode he experienced while here in 2017. States his blood sugar was 440
and was given 2 units of insulin and his blood sugar dropped to 40's. Of note, there is no record of a glucose level in the 40's during that hospital visit on chart review. Discussed this with pt and he remained adamant that he would not take
insulin.
Glucose range yesterday 162 to 210.
Fasting glucose this AM174. I did discuss with patient glucose elevations interfering with healing and possibly starting glimepiride. He states ' its only elevated because I have pain' he does not need another medication.
Will continue Metformin 1000 mg BID and Farxiga 10 mg daily.
Discussed with nurse. Will cont to follow.
Diabetes History
- -
Type of Diabetes: 2
Pre-Admission Diabetes Regimen
Lab Results
Hemoglobin A1c 8.9 % (4.0-5.6) H 06/13/25 10:39
Insulin Pump Settings
IP Diabetes Regimen
06/24/25 06/24/25 06/24/25
08:07 12:04 16:51
POC Glucose 210 H 162 H 209 H
06/24/25
21:48
POC Glucose 195 H
Meal type: Lunch
Meal type: Breakfast
Amount consumed: 100%
Amount consumed: 100%
Patient Education
[2025-06-25 08:04] VITALS: BP 141/83
[2025-06-25 08:20] LABS: Blood Urea Nitrogen 23 mg/dl (9-20); Calcium 9.2 mg/dl (8.4-10.2); Carbon Dioxide 27 mmol/L (22-30); Chloride 105 mmol/L (98-107); Estimated Creatinine Clearance > 125 ml/min; Glucose 156 mg/dl (70-99); Potassium 5.1 mmol/L (3.5-5.1); Sodium 138 mmol/L (135-145); eGFR > 60.00
--- NOTE | 2025-06-25 08:35 | W.PN.HOSP.TC ---
Today's Communication/Plan
-
Discharge once wound VAC has been obtained for home use
Assessment / Plan
Assessment / Plan
39-year-old man with past medical history of:
essential hypertension,
diabetes,
obesity,
gout;
who presented with worsening right foot pain, swelling, and erythema. Patient reported injuring his right foot with a ladder at work 6 days [employer]. He was seen by his Workmen's Comp. doctor, x-ray was negative. He was given a walking boot and pain
meds. He returned to his Workmen's Comp. doctor due to worsening pain, and his doctor sent him to the ER.
A/P:
1. Sepsis POA 2/ Right foot cellulitis, infected hematoma complicated by Right foot traumatic injury
Right lower extremity CT negative for osteomyelitis or fracture, showed severe edema
Podiatry & ID on board, s/p Bedside I&D and purulence was expressed 06/15
S/p OR washout and deep wound culture sampling 06/16
Deep wound culture growing MSSA , Abx deescalated to cefazolin
At time of discharge, transition to cephalexin 1000mg po q8h x 2 more weeks.
S/p OR integra graft wound vac 06/23
Weight bear as tolerated in a surgical shoe
Discharge home with home care once wound VAC has been obtained
2. Elevated creatinine
Resumed home metformin, discontinued Toradol
Trend creatinine, no nephrotoxic drugs/NSAIDs
3. Uncontrolled type 2 diabetes
Patient reports that he becomes hyperglycemic due to stress and pain, and has a history of BS dropping to the 40s with insulin
Continue treating pain, cont diabetic diet, sliding scale insulin
Resumed home metformin, Farxiga
Patient refusing insulin, and does not want to sulfonylureas in the hospital
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
4. Hyperkalemia - resolved
Low K diet, hold home valsartan -would recommend permanently discontinuing upon discharge
5. Essential hypertension
Hold home valsartan due to hyperkalemia
Continue amlodipine 10 mg every afternoon
Started clonidine 0.1 mg 3 times daily - continue upon dc
IV hydralazine if needed while NPO
6. Chronic back pain with History of lumbar fractures
Has spinal stimulator
7. Obesity due to excess calories - BMI 39
Affects all aspects of care
Outpatient weight loss
DVT prophylaxis�subcu Lovenox
Full code
Total time spent to see the patient on the floor, examine the patient, review data and lab results, discuss treatment plan with patient, nursing staff around 40 minutes.
Physical Exam
General: Obese, no acute distress
HEENT: Normocephalic, Atraumatic, EOMI, MMM
Respiratory: Clear to Auscultation bilaterally
Cardiac: Normal S1/S2, Regular Rate and Rhythm
GI: Soft, Nontender, Nondistended, Normal Bowel Sounds
Extremities: No Clubbing, Cyanosis
Right foot dressed
Neuro: Nonfocal/Grossly Intact
Anticipated Discharge: Today
Subjective/Interval History
-
Date of Service: June 24, 2025
Patient complains of severe right foot pain. Denies chest pain, denies shortness of breath. Denies constipation. No fever, no vomiting.
Objective Data
-
Labs:
Laboratory Results
06/24/25
06:25
WBC 10.2
Hgb 12.9 L
Hct 39.0
Plt Count 352
Sodium 136
Potassium 5.2 H
Chloride 103
Carbon Dioxide 27
BUN 22 H
Creatinine 1.2
Glucose 216 H
Calcium 9.2
Vital Signs:
Vital Signs
Temp Pulse Resp BP Pulse Ox
97.8 F 93 18 147/96 97
06/24/25 15:11 06/24/25 15:11 06/24/25 15:11 06/24/25 15:11 06/24/25 15:11
I&O
06/23/25 06/24/25 06/25/25
06:59 06:59 06:59
Intake Total 1220 / 1220 680 / 680
Output Total 2900 / 2900
Balance 1220 / 1220 -2220 / -2220
[2025-06-25] MEDS: GLUCOPHAGE 1000 MG PO (08:40)
[2025-06-25] MEDS: CATAPRES 0.1 MG PO ×2 (08:40→16:18)
[2025-06-25] MEDS: SENOKOT-S 2 TABLET PO (08:40)
[2025-06-25] MEDS: TYLENOL 1000 MG PO ×2 (08:40→16:18)
--- NOTE | 2025-06-25 08:44 | W.PN.POD ---
Today's Communication
Today's Communication
Right foot wound
Assessment / Plan
-
Assessment:
S/P repeat right foot wound debridement, integra grafting, and wound VAC application- POD #2
Type 2 Diabetes Mellitus
Plan:
Await home wound VAC and Home VNS to be arranged. He may Weight bear as tolerated in a surgical shoe. VAC changed today at bedside. Continue IV antibiotics - cefazolin [id number], ID recommends po Keflex for discharge.
Subjective
Chief Complaint
Right foot wound S/P debridement, graft and VAC
Subjective
Patient is awake and conversational. Relates some pain at the site.
Objective
Temp Pulse Resp BP Pulse Ox
98.2 F 82 14 141/83 100
06/25/25 08:04 06/25/25 08:04 06/25/25 08:04 06/25/25 08:04 06/25/25 08:04
06/25/25 06:50
06/25/25 06:50
Vital Signs and Lab results were reviewed.
Physical Exam
Physical Exam
Right foot neurovascular status intact. Digital ROM intact and responsive to light touch. Right dorsal foot with wound covered by Integra graft, wound measures 8 cm x 5.5 cm x 1 cm. Graft and silicone layer firmly attached in place with sutures.
The wound periphery is viable, with no calor, no malodor or active drainage. There is some faint blanchable erythema proximal laterally along the foot. Calves supple non tneder no pain with compression.
[2025-06-25 08:47] LABS: Glucose - Point of Care 174 mg/dl (70-99)
--- NOTE | 2025-06-25 10:34 | WOUNDNOTE ---
RIGHT DORSAL MEDIAL FOOT
--- NOTE | 2025-06-25 10:34 | WOUNDNOTE ---
RIGHT DORSAL MEDIAL FOOT
--- NOTE | 2025-06-25 10:36 | WOUNDNOTE ---
WON RN NOTE: Wound vac dressing changed to R foot with Dr. Rosen this morning. Integra graft under sutured silicone cover intact, base of wound red, tendon slightly exposed. used Adaptic then black foam to 125mmhg, patient tolerated procedure
well. Both heels are intact, pillow placed under calves. Spoke to case resource manager for workman's comp Nieves Blevins after vac change, confirmed she has all PW and orders she needs. Updated Nieves that white foam not being used, just adaptic then
black foam. Gave Nieves Rosen's office work email to obtain additional orders if needed. freezing room worker states she will keep us posted and that she did stress to [employer]) that [facility] and [facility]/ [employer] needed. Patient
anxious to go home, aware we are waiting on worker's comp approval. MARYAM Chau updated on the above.
--- NOTE | 2025-06-25 10:58 | VNURNOTE ---
Addendum entered by Claudine Mann RN 06/25/25 14:00:
Rec'ed update that [facility] [employer] will accept [facility]. We will plan for start of care visit on Monday. Confirmed w/[facility] Intake.
Original Note:
Home Health Liaison met with patient at bedside to discuss [facility] nurse/therapy, visits, schedule and homebound status. Patient is agreeable and understands that visits at home will be 2-3 x per week to assess and teach medical management. Reviewed
pet policy, patient has dogs, patient agreeable. Patient is aware that [facility] will contact them for start of care in 1-2 days after discharge from . Patient is aware that we are waiting confirmation from [employer] that they accept [facility]
services. He is aware if they do not accept [facility] then VN will be set up with a different agency by CM.
[facility] referral completed in [facility].
[2025-06-25 12:01] LABS: Glucose - Point of Care 212 mg/dl (70-99)
--- NOTE | 2025-06-25 12:23 | W.PN.ID1 ---
Date of Service
Date of Service: June 25, 2025
Today's Communication
See below.
Assessment / Plan
# Severe purulent cellulitis and abscesses right foot
Recent trauma to foot - hit against ladder through work boot.
# Fever resolved
# Leukocytosis - resolved
# DM
-Bcx neg to date
- CT no osteo/abscess
- 06/15 Podiatry bedside I+D 10cc pus.
cx: MSSA
- 06/16 s/p OR washout
OR cx: MSSA
- 06/20 s/p I+D
-06/23 s/p I+D to muscle and tendon Integra graft and VAC
- Awaiting wound vac delivery.
- Continue cefazolin
- At time of discharge, transition to cephalexin 1000mg po q8h x 2 more weeks.
Chief Complaint
-: Cellulitis
Subjective / Review of Systems
No significant foot pain.
Vital Signs / Physical Exam
Vital Signs
Vital Signs
Temp Pulse Resp BP Pulse Ox
98.2 F 82 14 141/83 100
06/25/25 08:04 06/25/25 08:40 06/25/25 08:04 06/25/25 08:40 06/25/25 11:55
Physical Exam
Constitutional: No Acute Distress
Cardiovascular: Regular Rate and S1/S2
Pulmonary: Clear and Symmetric
Gastrointestinal: Soft, Non Tender, Non Distended and Normal Bowel Sounds
Wound: Other (right foot with wound vac)
Neurological: AO x 3
Objective Data
Lab Data
Lab Results
06/25/25 06:50
06/25/25 06:50
ESR Cancelled 06/15/25 09:30
Estimated Creat Clear > 125 ml/min 06/25/25 06:50
Lactic Acid Cancelled 06/13/25 15:30
Total Bilirubin 1.3 mg/dl (0.2-1.3) 06/13/25 10:39
AST 23 U/L (17-59) 06/13/25 10:39
ALT 27 U/L (0-50) 06/13/25 10:39
Alkaline Phosphatase 104 U/L (38-126) 06/13/25 10:39
C-Reactive Protein > 270.00 mg/L (0.0-10.00) H 06/15/25 07:45
Most recent labs reviewed.
Micro Results:
06/16/25 15:48 Wound Culture - Final
Foot - Right S aureus-Methicillin Sensitive
Gram Stain - Final
06/16/25 15:48 Anaerobic Culture - Final
Foot - Right NO ANAEROBES ISOLATED
06/19/25 13:23 C. difficile GDH Antigen & Toxins - Final
Feces/Stool Negative for toxigenic C.difficile
- Final
Negative for Norovirus GI and GII.
06/13/25 11:51 Blood Culture - Final
Blood/Venous No Growth - Final Report
06/13/25 11:51 Blood Culture - Final
Blood/Venous No Growth - Final Report
06/15/25 15:12 Wound Culture - Final
Foot - Right S aureus-Methicillin Sensitive
Gram Stain - Final
06/13/25 11:53 Wound Culture - Final
Boil Gram Stain - Final
06/13/25 CT RLE: There is soft tissue inflammation but no evidence of osteomyelitis, fracture or abscess
[2025-06-25] MEDS: DESENEX/MITRAZOL/ZEASORB 1 APPLIC TOPICAL (12:26)
--- NOTE | 2025-06-25 13:06 | CM ---
Addendum entered by Kandi Vallejo 06/25/25 15:54:
Per Nieves patient approved for [facility] wound vac
home vac to be placed by [facility]
patient discharge today to home
IMM n/a
PLAN: Home with [facility], wound vac
to transport
Original Note:
Met with patient
CM spoke with Nieves Sexton CM workman's comp who stated that all information has been submitted to [employer] ([employer]) and is waiting for confirmation for [facility] vac - CM stated to her patient is ready for discharge & to expedite
PLAN: Home with VN, wound vac once confirmation received from workman's comp
to transport
[2025-06-25 16:00] VITALS: BP 146/84
--- NOTE | 2025-06-25 16:10 | WOUNDNOTE ---
[facility] RN note: Patient ready longterm vac is approved. Switched [facility]heed to the ready home vac serial #[id number]. Instructed patient and how to turn on/off home vac, how to clamp and disconnect vac tubing and reconnect and
un-clamp tubing as needed for dressing and instructed how to change vac canister. Instructed patient how to trouble shoot vac alarm and if ze bleeding occurs, to clamp and turn off vac pump and call 911. Patient aware to call [employer] or [employer]
support if having problem with vac suction. Patient signed ready home vac proof of delivery form. Air chair cushion given. He has Desenex powder for mild buttocks rash from moisture. Instructed patient heel pressure relief measures. [facility]
vac pump placed in 3W soiled utility room. Updated RN Kade.
--- NOTE | 2025-06-25 17:30 | WOUNDNOTE ---
[facility] RN note: Faxed patient signed proof of ready home vac delivery form to [employer] from [facility]. Notified [facility] of stop bill date of vac ulta pump rental (serial #[id number]) and pick up driver (work order #[id number]).
== END 2025-06-25 17:05 | disposition home health service (06) | DRG 854 ==
LOC: 3 WEST ACU 15:12
PROVIDERS: Internal Medicine; ADMITTING PHYSICIAN Family Medicine; CONSULT PHYSICIAN Internal Medicine Infectious Disease; CONSULT PHYSICIAN Podiatrist; EMERGENCY PHYSICIAN Emergency Medicine; FAMILY PHYSICIAN Family Medicine
PROC: 0Y9M0ZZ Drainage of Right Foot, Open Approach (ICD-10-PCS; 2025-06-15)
PROC: 0JBQ0ZZ Excision of Right Foot Subcutaneous Tissue and Fascia, Open Approach (ICD-10-PCS; 2025-06-16)
PROC: 0LBV0ZZ Excision of Right Foot Tendon, Open Approach (ICD-10-PCS; 2025-06-20)
PROC: 0HRMXK3 Replacement of Right Foot Skin with Nonautologous Tissue Substitute, Full Thickness, External Approach (ICD-10-PCS; 2025-06-23)
PROC: 0KBV0ZZ Excision of Right Foot Muscle, Open Approach (ICD-10-PCS; 2025-06-23)
DX: A41.01 Sepsis due to Methicillin susceptible Staphylococcus aureus (principal); E87.1 Hypo-osmolality and hyponatremia; L02.611 Cutaneous abscess of right foot; L03.115 Cellulitis of right lower limb; S90.31XA Contusion of right foot, initial encounter; E11.628 Type 2 diabetes mellitus with other skin complications; I10 Essential (primary) hypertension; E11.65 Type 2 diabetes mellitus with hyperglycemia; E66.09 Other obesity due to excess calories; M10.9 Gout, unspecified; M54.16 Radiculopathy, lumbar region; E87.5 Hyperkalemia; E66.813 Obesity, class 3; F32.A Depression, unspecified; F41.9 Anxiety disorder, unspecified; G89.29 Other chronic pain; W20.8XXA Other cause of strike by thrown, projected or falling object, initial encounter; Y93.H3 Activity, building and construction; Y92.9 Unspecified place or not applicable; Y99.0 Civilian activity done for income or pay; Z79.84 Long term (current) use of oral hypoglycemic drugs; Z96.82 Presence of neurostimulator; Z88.2 Allergy status to sulfonamides; Z87.81 Personal history of (healed) traumatic fracture; Z68.38 Body mass index [BMI] 38.0-38.9, adult
CPT/HCPCS: 73701; 80048; 80053; 80202; 82565; 82962; 83036; 83605; 83735; 85025; 85027; 85652; 86140; 87040; 87070; 87075; 87147; 87186; 87205; 87324; 87449; 87798; 96361; 96365; 96366; 96367; 96375; 97116; 97162; 97167; 97530; 97535; 99284; Q4108; Q9967

== ENCOUNTER 2025-07-31 06:35 | Day surgery (SDC) | payer OTHER, SELFPAY ==
[2025-07-31] VITALS (7 sets, daily range): BP systolic 98–128; BP diastolic 58–82
[2025-07-31 12:48] LABS: Glucose - Point of Care 219 mg/dl (70-99)
--- NOTE | 2025-07-31 13:31 | PTCARENOTE ---
Blood sugar 219@ 1246. Patient allergy to insulin. Dr. Sonya corona.
[2025-07-31 15:06] LABS: Glucose - Point of Care 183 mg/dl (70-99)
[2025-07-31 16:57] LABS: Glucose - Point of Care 177 mg/dl (70-99)
== END 2025-07-31 18:01 | disposition home or self-care (01) ==
LOC: SDS 06:35
PROVIDERS: ATTENDING PHYSICIAN Podiatrist
DX: S91.301A Unspecified open wound, right foot, initial encounter (principal); W22.8XXA Striking against or struck by other objects, initial encounter
CPT/HCPCS: 15002; 11043; 11046; 97605; 82962; Q4104